=== PATIENT | male | born 1985 | race African-American/Black ===

== ENCOUNTER 2016-12-14 15:05 | Emergency (ER) | payer SELFPAY ==
[2016-12-14 15:59] LABS: #Basophils 0.1 thou/uL (0.0-0.2); #Monocytes 0.5 thou/uL (0.11-0.59); #Neutrophils 5.2 thou/uL (1.40-6.50); %Basophils 0.9 % (0.0-1.0); %Eosinophils 0.4 % (0.0-10.0); %Monocytes 6.6 % (0.0-10.0); Hematocrit 53.2 % (42.0-52.0); Mean Platelet Volume 6.4 fL (7.4-10.4); Red Blood Cell (RBC) Count 5.67 mill/uL (4.70-6.10); White Blood Cell (WBC) Count 7.8 thou/uL (4.8-10.8)
[2016-12-14 16:24] LABS: ALT (SGPT) 18 U/L (8-55); AST (SGOT) 23 U/L (5-34); Alkaline Phosphatase 50 U/L (40-150); Anion Gap 12 mmol/L (10-20); BUN (Urea Nitrogen) 17 mg/dL (8.9-20.6); Bilirubin, Total 0.5 mg/dL (0.2-1.2); Calc. Creatinine Clearance 0 mL/min (70-130); Calcium 9.4 mg/dL (7.8-10.44); Carbon Dioxide 27 mmol/L (22-29); Chloride 104 mmol/L (98-107); Estimated GFR-MDRD 81; Globulin 2.8 g/dL (2.4-3.5); Lipase 12 U/L (8-78); Protein, Total 6.6 g/dL (6.0-8.3)
[2016-12-14] MEDS ORDERED: Ondansetron ODT 4 MG TAB ONE (16:30)
== END 2016-12-14 17:45 | disposition home or self-care (01) ==
LOC: ERS 15:05
DX: R11.2 Nausea with vomiting, unspecified (principal); F17.210 Nicotine dependence, cigarettes, uncomplicated
CPT/HCPCS: 36415; 80053; 83690; 85025; 99284; Q0162

== ENCOUNTER 2017-03-09 14:03 | Emergency (ER) | payer SELFPAY | END 2017-03-09 14:25 | disposition home or self-care (01) | LOC: ERS 14:03 | DX: J02.9 Acute pharyngitis, unspecified (principal); F17.210 Nicotine dependence, cigarettes, uncomplicated | CPT/HCPCS: 99283 ==

== ENCOUNTER 2017-12-30 14:00 | Emergency (ER) | payer SELFPAY | END 2017-12-30 14:47 | disposition home or self-care (01) | LOC: SCSER 14:00 | DX: M62.838 Other muscle spasm (principal); F17.210 Nicotine dependence, cigarettes, uncomplicated | CPT/HCPCS: 99283 ==

== ENCOUNTER 2018-12-03 16:39 | Emergency (ER) | payer SELFPAY ==
[2018-12-03 17:43] LABS: Bacteria/HPF None Seen HPF (None Seen); Bilirubin Negative (Negative); Blood, Urine Negative (Negative); Clarity Clear (Clear); Glucose, Urine (Dipstick) Normal (Negative); Leukocyte 250 Leu/uL (Negative); Nitrite Negative (Negative); Protein, Urine (Dipstick) Negative (Neg-Trace); RBC/HPF 0-3 HPF (0-3); Squamous Epithelial None Seen HPF (0-3); Urobilinogen Normal mg/dL (Less than 2)
[2018-12-03 17:48] LABS: Hemoglobin 15.2 g/dL (14.0-18.0); Mean Corpuscular Hemoglobin 28.3 pg (27.0-31.0); Mean Corpuscular Volume 85.7 fL (78.0-98.0); Platelet Count 219 thou/uL (130-400); RBC Distribution Width 12.3 % (11.5-14.5); Red Blood Cell (RBC) Count 5.37 mill/uL (4.70-6.10); White Blood Cell (WBC) Count 7.5 thou/uL (4.8-10.8)
[2018-12-03 18:01] LABS: Lymphocytes 50 % (21-51); MDiff Complete? YES; Monocytes 9 % (0-10); Neutrophil 39 % (42-75); Platelet Morphology Comment Appears Adequate; RBC Morphology Normal; Reactive Lymphocytes 2 % (0-10)
[2018-12-03 18:09] LABS: ALT (SGPT) 58 U/L (8-55); AST (SGOT) 40 U/L (5-34); Albumin 4.3 g/dL (3.5-5.0); Alkaline Phosphatase 202 U/L (40-110); Anion Gap 10 mmol/L (10-20); BUN (Urea Nitrogen) 21 mg/dL (8.9-20.6); Bilirubin, Total 0.7 mg/dL (0.2-1.2); Calc. Creatinine Clearance 0 mL/min (70-130); Calcium 9.8 mg/dL (7.8-10.44); Carbon Dioxide 28 mmol/L (22-29); Chloride 103 mmol/L (98-107); Estimated GFR-MDRD Greater than 90; Globulin 3.2 g/dL (2.4-3.5); Glucose 92 mg/dL (70-105); Lipase 29 U/L (8-78); Potassium 4.2 mmol/L (3.5-5.1); Protein, Total 7.5 g/dL (6.0-8.3); Sodium 137 mmol/L (136-145)
[2018-12-03 20:07] LABS: Free T4 (Free Thyroxine) 3.32 ng/dL (0.70-1.48); Thyroid Stimulating Hormone Less than 0.0025 uIU/mL (0.35-4.94)
== END 2018-12-03 21:32 | disposition home or self-care (01) ==
LOC: ERS 16:39
DX: E03.9 Hypothyroidism, unspecified (principal); F17.210 Nicotine dependence, cigarettes, uncomplicated
CPT/HCPCS: 36415; 80053; 81003; 81015; 83690; 84439; 84443; 85025; 99284

== ENCOUNTER 2021-12-24 12:51 | Emergency (ER) | payer SELFPAY ==
[2021-12-24 13:27] LABS: #Basophils 0.1 thou/uL (0.0-0.2); #Lymphocytes 2.2 thou/uL (1.20-3.40); #Monocytes 0.7 thou/uL (0.11-0.59); #Neutrophils 4.7 thou/uL (1.40-6.50); %Basophils 0.9 % (0.0-1.0); %Eosinophils 0.4 % (0.0-10.0); %Monocytes 8.6 % (0.0-10.0); Hemoglobin 16.4 g/dL (14.0-18.0); Mean Corpuscular HGB CONC 32.3 g/dL (32.0-36.0); Mean Corpuscular Hemoglobin 31.5 pg (27.0-31.0); Mean Corpuscular Volume 97.2 fl (78.0-98.0); Mean Platelet Volume 7.4 fL (7.4-10.4); Platelet Count 246 thou/uL (130-400); RBC Distribution Width 12.7 % (11.5-14.5); Red Blood Cell (RBC) Count 5.21 mill/uL (4.70-6.10); White Blood Cell (WBC) Count 7.7 thou/uL (4.8-10.8)
[2021-12-24 13:36] LABS: ALT (SGPT) 24 U/L (8-55); AST (SGOT) 21 U/L (5-34); Albumin 4.2 g/dL (3.5-5.0); Alkaline Phosphatase 53 U/L (40-110); Anion Gap 12 mmol/L (10-20); BUN (Urea Nitrogen) 10 mg/dL (8.9-20.6); Bilirubin, Total 0.6 mg/dL (0.2-1.2); Calc. Creatinine Clearance 0 mL/min (70-130); Calcium 9.8 mg/dL (7.8-10.44); Carbon Dioxide 27 mmol/L (22-29); Chloride 104 mmol/L (98-107); Estimated GFR 84; Globulin 3.2 g/dL (2.4-3.5); Glucose 91 mg/dL (70-105); Protein, Total 7.4 g/dL (6.0-8.3); Sodium 139 mmol/L (136-145)
[2021-12-24 14:14] LABS: Bilirubin Negative (Negative); Blood, Urine Negative (Negative); Clarity Clear (Clear); Glucose, Urine (Dipstick) Normal (Negative); Ketone, Urine Negative (Negative); Leukocyte Negative Leu/uL (Negative); Nitrite Negative (Negative); Protein, Urine (Dipstick) Negative (Neg-Trace); Specific Gravity, Urine 1.004 (1.002-1.036); Urobilinogen Normal mg/dL (Less than 2)
[2021-12-24] MEDS ORDERED: Cyclobenzaprine 10 MG TAB ONE (14:41)
[2021-12-24] MEDS ORDERED: Ketorolac Tromethamine 30 MG/ML VIAL ONE (14:41)
== END 2021-12-24 16:53 | disposition home or self-care (01) ==
LOC: ERS 12:51
DX: S39.012A Strain of muscle, fascia and tendon of lower back, initial encounter (principal); R35.0 Frequency of micturition; E05.90 Thyrotoxicosis, unspecified without thyrotoxic crisis or storm; F17.210 Nicotine dependence, cigarettes, uncomplicated; X50.0XXA Overexertion from strenuous movement or load, initial encounter
CPT/HCPCS: 36415; 74176; 80053; 81003; 85025; 96361; 96374; J1885

== ENCOUNTER 2023-12-11 04:38 | Inpatient (IN) | payer SELFPAY ==
[2023-12-11] MEDS ORDERED: Metoprolol Tartrate 5 MG (5 mL) VIAL ONE ×2 (05:10→07:13)
[2023-12-11 05:32] LABS: #Basophils Less than 0.03 10x3/uL (0.0-0.2); %Basophils 0.2 % (0.0-1.0); %Eosinophils 0.5 % (0.0-10.0); %Lymphocytes 36.8 % (21.0-51.0); %Monocytes 12.8 % (0.0-10.0); %Neutrophils 49.4 % (42.0-75.0); Hematocrit 41.5 % (42.0-52.0); Hemoglobin 13.2 g/dL (14.0-18.0); Mean Corpuscular HGB CONC 31.8 g/dL (32.0-36.0); Mean Corpuscular Hemoglobin 27.7 pg (27.0-31.0); Mean Platelet Volume 10.4 fL (7.4-10.4); Platelet Count 196 10x3/uL (130-400); RBC Distribution Width 13.2 % (11.5-14.5); Red Blood Cell (RBC) Count 4.77 mill/uL (4.70-6.10)
[2023-12-11 05:45] LABS: ALT (SGPT) 31 U/L (8-55); AST (SGOT) 34 U/L (5-34); Albumin 3.4 g/dL (3.5-5.0); Alkaline Phosphatase 154 U/L (40-110); BUN (Urea Nitrogen) 13 mg/dL (8.9-20.6); Bilirubin, Total 0.8 mg/dL (0.2-1.2); Calc. Creatinine Clearance 0 mL/min (70-130); Calcium 9.6 mg/dL (7.8-10.44); Carbon Dioxide 22 mmol/L (22-29); Estimated GFR 114; Globulin 3.6 g/dL (2.4-3.5); Glucose 160 mg/dL (70-105)
[2023-12-11 06:03] LABS: Chloride 109 mmol/L (98-107); Potassium 3.7 mmol/L (3.5-5.1); Sodium 139 mmol/L (136-145)
[2023-12-11 06:05] LABS: Anion Gap 14 mmol/L (10-20)
[2023-12-11 06:27] LABS: Free T4 (Free Thyroxine) 3.06 ng/dL (0.70-1.48); Thyroid Stimulating Hormone Less than 0.0083 uIU/mL (0.35-4.94)
[2023-12-11] MEDS ORDERED: Hydrocortisone Sod Succ/PF 100 mg/2 ml Vial ONE (07:13)
[2023-12-11] MEDS ORDERED: Aspirin Chewable 81 MG TAB ONE (07:33)
[2023-12-11] MEDS ORDERED: Ondansetron PF 4 MG/2 ML Vial IVP PRN (08:28)
[2023-12-11] MEDS ORDERED: Acetaminophen 325 MG TAB PO PRN (08:28)
[2023-12-11] MEDS ORDERED: Senokot S 8.6-50 MG TAB PO PRN (08:28)
[2023-12-11] MEDS ORDERED: Guaifenesin DM 100-10/5 ML UDCUP PO PRN (08:28)
[2023-12-11 08:31] LABS: Troponin I Less than 0.010 ng/mL (< 0.028)
[2023-12-11] MEDS: Propylthiouracil 50 MG TAB PO SCH (08:50)
[2023-12-11] MEDS: Propranolol 40 MG TAB PO SCH (08:50)
[2023-12-11] MEDS ORDERED: Metoprolol Tartrate 5 MG (5 mL) VIAL IVP PRN (08:56)
[2023-12-11] MEDS: Atenolol 50 MG TAB PO SCH (09:24)
[2023-12-11 09:38] LABS: Iron 46 ug/dL (65-175); Iron Binding Capacity, Total 284 mcg/dL (261-462)
[2023-12-11] MEDS ORDERED: Enoxaparin 40 MG (0.4 mL) SYRINGE ONE (09:41)
[2023-12-11] MEDS: Sodium Chloride 0.9% 1,000 ML IV SCH (09:59)
[2023-12-11] MEDS: Methimazole 10 MG TAB PO SCH ×2 (09:59→19:12)
[2023-12-11] MEDS: Enoxaparin 40 MG (0.4 mL) SYRINGE SC SCH (09:59)
[2023-12-11] MEDS: Hydrocortisone Sod Succ/PF 100 mg/2 ml Vial IVP SCH (20:59)
[2023-12-11] MEDS: Nicotine 21 MG PATCH TD SCH (20:59)
[2023-12-12 04:29] LABS: #Basophils Less than 0.03 10x3/uL (0.0-0.2); #Eosinophils Less than 0.03 10x3/uL (0.0-0.7); %Basophils 0.1 % (0.0-1.0); %Lymphocytes 20.6 % (21.0-51.0); %Monocytes 6.9 % (0.0-10.0); %Neutrophils 72.1 % (42.0-75.0); Hematocrit 38.9 % (42.0-52.0); Hemoglobin 12.9 g/dL (14.0-18.0); Mean Corpuscular HGB CONC 33.2 g/dL (32.0-36.0); Mean Corpuscular Hemoglobin 27.6 pg (27.0-31.0); Mean Corpuscular Volume 83.3 fL (78.0-98.0); Mean Platelet Volume 10.5 fL (7.4-10.4); Platelet Count 187 10x3/uL (130-400); RBC Distribution Width 13.1 % (11.5-14.5); Red Blood Cell (RBC) Count 4.67 mill/uL (4.70-6.10)
[2023-12-12 05:45] LABS: ALT (SGPT) 32 U/L (8-55); AST (SGOT) 37 U/L (5-34); Albumin 2.9 g/dL (3.5-5.0); Alkaline Phosphatase 144 U/L (40-110); Anion Gap 11 mmol/L (10-20); BUN (Urea Nitrogen) 13 mg/dL (8.9-20.6); Bilirubin, Total 0.7 mg/dL (0.2-1.2); Calc. Creatinine Clearance 119 mL/min (70-130); Calcium 9.3 mg/dL (7.8-10.44); Carbon Dioxide 21 mmol/L (22-29); Chloride 109 mmol/L (98-107); Estimated GFR 120; Globulin 3.3 g/dL (2.4-3.5); Glucose 128 mg/dL (70-105); Magnesium 1.8 mg/dL (1.6-2.6); Potassium 4.3 mmol/L (3.5-5.1); Protein, Total 6.2 g/dL (6.0-8.3); Sodium 137 mmol/L (136-145)
[2023-12-12 06:31] LABS: Free T4 (Free Thyroxine) 2.83 ng/dL (0.70-1.48)
[2023-12-12 11:48] VITALS: BMI 18.6
[2023-12-12] MEDS: Nicotine 21 MG PATCH TD SCH (20:09)
[2023-12-13] MEDS: Propranolol 60 MG TAB PO SCH (12:28)
[2023-12-14 03:28] LABS: #Basophils Less than 0.03 10x3/uL (0.0-0.2); #Eosinophils Less than 0.03 10x3/uL (0.0-0.7); %Basophils 0.1 % (0.0-1.0); %Monocytes 5.2 % (0.0-10.0); %Neutrophils 82.4 % (42.0-75.0); Hematocrit 42.5 % (42.0-52.0); Hemoglobin 13.7 g/dL (14.0-18.0); Mean Corpuscular HGB CONC 32.2 g/dL (32.0-36.0); Mean Corpuscular Hemoglobin 27.3 pg (27.0-31.0); Mean Corpuscular Volume 84.7 fL (78.0-98.0); Mean Platelet Volume 10.4 fL (7.4-10.4); Platelet Count 231 10x3/uL (130-400); Red Blood Cell (RBC) Count 5.02 mill/uL (4.70-6.10)
[2023-12-14 04:30] LABS: Anion Gap 12 mmol/L (10-20); BUN (Urea Nitrogen) 17 mg/dL (8.9-20.6); Calc. Creatinine Clearance 124 mL/min (70-130); Carbon Dioxide 22 mmol/L (22-29); Chloride 106 mmol/L (98-107); Estimated GFR 121; Glucose 111 mg/dL (70-105); Potassium 3.8 mmol/L (3.5-5.1); Sodium 136 mmol/L (136-145)
[2023-12-14 06:24] VITALS: BMI 19.2
[2023-12-14] MEDS: Hydrocortisone Sod Succ/PF 100 mg/2 ml Vial IVP SCH (09:16)
[2023-12-15 04:46] LABS: Anion Gap 11 mmol/L (10-20); BUN (Urea Nitrogen) 18 mg/dL (8.9-20.6); Calc. Creatinine Clearance 120 mL/min (70-130); Calcium 9.4 mg/dL (7.8-10.44); Carbon Dioxide 27 mmol/L (22-29); Chloride 106 mmol/L (98-107); Estimated GFR 119; Glucose 110 mg/dL (70-105); Potassium 3.7 mmol/L (3.5-5.1); Sodium 140 mmol/L (136-145)
[2023-12-16 04:59] LABS: Anion Gap 11 mmol/L (10-20); BUN (Urea Nitrogen) 16 mg/dL (8.9-20.6); Calc. Creatinine Clearance 131 mL/min (70-130); Carbon Dioxide 28 mmol/L (22-29); Chloride 104 mmol/L (98-107); Estimated GFR 118; Glucose 98 mg/dL (70-105); Potassium 3.7 mmol/L (3.5-5.1); Sodium 139 mmol/L (136-145)
[2023-12-16 12:08] VITALS: BP 140/102; TEMP 98
== END 2023-12-16 12:28 | disposition home or self-care (01) | DRG 643 ==
LOC: ERS 04:38 → ERHOLD 08:34 → IMCU/EMU 11:58 → 2NO 12-14 15:00
PROVIDERS: ADMIT Hospitalist; ATTEND Hospitalist
DX: E05.91 Thyrotoxicosis, unspecified with thyrotoxic crisis or storm (principal); I50.21 Acute systolic (congestive) heart failure; I42.9 Cardiomyopathy, unspecified; I48.91 Unspecified atrial fibrillation; F17.210 Nicotine dependence, cigarettes, uncomplicated; Z79.899 Other long term (current) drug therapy; I08.1 Rheumatic disorders of both mitral and tricuspid valves; Z91.148 Patient's other noncompliance with medication regimen for other reason
CPT/HCPCS: 36415; 71045; 80048; 80053; 82728; 83540; 83550; 83735; 83880; 84439; 84443; 84481; 84484; 85025; 86376; 86800; 87081; 87430; 93005; 93306; 93798; 96361; 96374; 96375; 96376; J1650; J1720; J7030

== ENCOUNTER 2024-01-01 19:18 | Inpatient (IN) | payer OTHER ==
[2024-01-01] MEDS ORDERED: dilTIAZem 25 MG/5 ML VIAL ONE (20:00)
[2024-01-01 20:05] LABS: #Basophils Less than 0.03 10x3/uL (0.0-0.2); #Eosinophils Less than 0.03 10x3/uL (0.0-0.7); %Basophils 0.2 % (0.0-1.0); %Eosinophils 0.1 % (0.0-10.0); %Lymphocytes 39.7 % (21.0-51.0); %Monocytes 10.5 % (0.0-10.0); %Neutrophils 49.3 % (42.0-75.0); Hematocrit 40.1 % (42.0-52.0); Mean Corpuscular HGB CONC 32.4 g/dL (32.0-36.0); Mean Corpuscular Volume 83.4 fL (78.0-98.0); Mean Platelet Volume 10.6 fL (7.4-10.4); Platelet Count 245 10x3/uL (130-400); RBC Distribution Width 14.4 % (11.5-14.5); Red Blood Cell (RBC) Count 4.81 mill/uL (4.70-6.10)
[2024-01-01 20:23] LABS: Anion Gap 14 mmol/L (10-20); BUN (Urea Nitrogen) 16 mg/dL (8.9-20.6); Calc. Creatinine Clearance 0 mL/min (70-130); Carbon Dioxide 20 mmol/L (22-29); Chloride 107 mmol/L (98-107); Sodium 137 mmol/L (136-145)
[2024-01-01 20:24] LABS: ALT (SGPT) 27 U/L (8-55); AST (SGOT) 34 U/L (5-34); Albumin 3.4 g/dL (3.5-5.0); Alkaline Phosphatase 181 U/L (40-110); Bilirubin, Total 2.4 mg/dL (0.2-1.2); Calcium 9.1 mg/dL (7.8-10.44); Estimated GFR 93; Globulin 3.9 g/dL (2.4-3.5); Glucose 87 mg/dL (70-105); Protein, Total 7.3 g/dL (6.0-8.3)
[2024-01-01 20:27] LABS: Troponin I 0.039 ng/mL (< 0.028)
[2024-01-01] MEDS ORDERED: Furosemide 40 MG (4 mL) VIAL ONE (20:39)
[2024-01-01] MEDS ORDERED: dilTIAZem 125 MG/25 ML SDV ONE ×2 (20:40→20:41)
[2024-01-01 20:53] LABS: Free T4 (Free Thyroxine) 2.05 ng/dL (0.70-1.48); Thyroid Stimulating Hormone Less than 0.0083 uIU/mL (0.35-4.94)
[2024-01-01] MEDS ORDERED: Metoprolol Tartrate 5 MG (5 mL) VIAL ONE (22:04)
[2024-01-01] MEDS ORDERED: Ondansetron PF 4 MG/2 ML Vial ONE (22:21)
[2024-01-01] MEDS ORDERED: Hydrocortisone Sod Succ/PF 100 mg/2 ml Vial ONE (23:04)
[2024-01-01] MEDS ORDERED: Acetaminophen 650 MG Suppository PR PRN (23:42)
[2024-01-01 23:47] LABS: Troponin I 0.031 ng/mL (< 0.028)
[2024-01-02 01:09] VITALS: BMI 22.8
[2024-01-02] MEDS: Propylthiouracil 50 MG TAB PO SCH (01:20)
[2024-01-02 02:21] LABS: Amphetamine Not Detected (NotDetected); Barbiturates Screen Not Detected (NotDetected); Benzodiazepine Screen Not Detected (NotDetected); Cocaine Metabolite Screen Not Detected (NotDetected); Methadone Not Detected (NotDetected); Methamphetamine Not Detected (NotDetected); Opiate Screen Not Detected (NotDetected); Oxycodone Screen Not Detected (NotDetected); Phencyclidine (PCP) Not Detected (NotDetected); THC/Cannabinoid Screen Detected (NotDetected); Tricyclic Screen Not Detected (NotDetected)
[2024-01-02 02:22] LABS: #Basophils Less than 0.03 10x3/uL (0.0-0.2); #Eosinophils Less than 0.03 10x3/uL (0.0-0.7); %Basophils 0.2 % (0.0-1.0); %Lymphocytes 19.5 % (21.0-51.0); %Monocytes 3.9 % (0.0-10.0); %Neutrophils 76.1 % (42.0-75.0); Hematocrit 39.7 % (42.0-52.0); Hemoglobin 12.2 g/dL (14.0-18.0); Mean Corpuscular HGB CONC 30.7 g/dL (32.0-36.0); Mean Corpuscular Hemoglobin 27.1 pg (27.0-31.0); Platelet Count 213 10x3/uL (130-400); RBC Distribution Width 14.5 % (11.5-14.5); Red Blood Cell (RBC) Count 4.51 mill/uL (4.70-6.10)
[2024-01-02 02:52] LABS: Troponin I 0.049 ng/mL (< 0.028)
[2024-01-02 03:35] LABS: ALT (SGPT) 27 U/L (8-55); AST (SGOT) 34 U/L (5-34); Albumin 3.2 g/dL (3.5-5.0); Alkaline Phosphatase 172 U/L (40-110); Anion Gap 22 mmol/L (10-20); BUN (Urea Nitrogen) 19 mg/dL (8.9-20.6); Bilirubin, Total 2.8 mg/dL (0.2-1.2); Calc. Creatinine Clearance 75 mL/min (70-130); Calcium 8.7 mg/dL (7.8-10.44); Carbon Dioxide 13 mmol/L (22-29); Chloride 107 mmol/L (98-107); Estimated GFR 65; Globulin 3.7 g/dL (2.4-3.5); Glucose 142 mg/dL (70-105); Magnesium 1.9 mg/dL (1.6-2.6); Potassium 4.9 mmol/L (3.5-5.1); Protein, Total 6.9 g/dL (6.0-8.3); Sodium 137 mmol/L (136-145)
[2024-01-02] MEDS: Metoprolol Tartrate 5 MG (5 mL) VIAL IVP SCH (04:34)
[2024-01-02] MEDS: Furosemide 40 MG (4 mL) VIAL SLOW IVP SCH (05:00)
[2024-01-02] MEDS: Acetaminophen 325 MG TAB PO SCH (07:49)
[2024-01-02] MEDS ORDERED: Methimazole 10 MG TAB PO SCH (09:00)
[2024-01-02] MEDS ORDERED: Cholestyramine/Aspartame 4 gm Packet PO SCH (10:00)
[2024-01-02] MEDS ORDERED: Iopamidol-370 76% 500 ML MDV (1 ML CHARGE) ONE (10:32)
[2024-01-02] MEDS: Enoxaparin 40 MG (0.4 mL) SYRINGE SC SCH (10:43)
[2024-01-02] MEDS: Propranolol 40 MG TAB PO SCH (10:43)
[2024-01-02] MEDS: Methimazole 10 MG TAB PO SCH (10:43)
[2024-01-02] MEDS: Hydrocortisone Sod Succ/PF 100 mg/2 ml Vial IVP SCH (10:43)
[2024-01-02] MEDS: Digoxin 0.5 MG/2 ML AMP SLOW IVP SCH (10:43)
[2024-01-02] MEDS: Cholestyramine/Aspartame 4 gm Packet PO SCH (12:35)
[2024-01-02] MEDS: Ondansetron PF 4 MG/2 ML Vial IVP PRN (12:41)
[2024-01-02] MEDS: Morphine 4 MG/ML VIAL SLOW IVP SCH (13:41)
[2024-01-02] MEDS: Pantoprazole 40 MG VIAL IVP SCH ×2 (13:42→20:18)
[2024-01-02] MEDS: NOREPINEPHRINE 8 MG/250 ML-D5W 250 ML ONE (14:15)
[2024-01-02] MEDS: Fentanyl CADD 100 ML IV SCH (14:16)
[2024-01-02 14:26] LABS: Analyzer IN Cardio ER; Base Excess -29.4 mEq/L (-2.0 to +3.0); Chloride (VBG) 98 mmol/L (98-106); Hematocrit-VBG 35 % (42.0-52.0); Hemoglobin (Hb) 11.8 g/dL (13.2-17.3); Sodium 134 mmol/L (133-146); pH (venous) 6.616 (7.32-7.43)
[2024-01-02 14:27] LABS: Actual Bicarbonate (HCO3v) 8.8 mEq/L (22-28); Potassium (VBG) 6.08 mmol/L (3.70-5.30)
[2024-01-02] MEDS ORDERED: Heparin 25,000 units/D5W 500 ML ONE (14:28)
[2024-01-02] MEDS ORDERED: Heparin 10,000 UNITS/ 10 ML VIAL SLOW IVP SCH ×3 (14:30→19:30)
[2024-01-02] MEDS ORDERED: Heparin 25,000 units/D5W 500 ML IV SCH (14:30)
[2024-01-02] MEDS: ALTEPLASE 50 MG/50 ML VIAL IVP SCH (15:32)
[2024-01-02 15:34] LABS: #Basophils Less than 0.03 10x3/uL (0.0-0.2); #Eosinophils Less than 0.03 10x3/uL (0.0-0.7); %Basophils 0.2 % (0.0-1.0); %Monocytes 5.8 % (0.0-10.0); %Neutrophils 54.3 % (42.0-75.0); Hematocrit 40.5 % (42.0-52.0); Hemoglobin 12.2 g/dL (14.0-18.0); Mean Corpuscular HGB CONC 30.1 g/dL (32.0-36.0); Mean Corpuscular Hemoglobin 27.5 pg (27.0-31.0); Mean Corpuscular Volume 91.2 fL (78.0-98.0); Mean Platelet Volume 11.6 fL (7.4-10.4); Platelet Count 189 10x3/uL (130-400); RBC Distribution Width 14.6 % (11.5-14.5); Red Blood Cell (RBC) Count 4.44 mill/uL (4.70-6.10)
[2024-01-02] MEDS: PREFILLED IVP SCH (15:52)
[2024-01-02] MEDS: ALTEPLASE IVP SCH (15:52)
[2024-01-02] MEDS ORDERED: Sodium Bicarb 50 MEQ/50 ML Abboject 8.4% SYRINGE ONE (16:00)
[2024-01-02] MEDS: Sodium Bicarb 50 MEQ/50 ML Abboject 8.4% SYRINGE ONE (16:00)
[2024-01-02 16:06] LABS: PTT Greater than 250.0 sec (22.9-36.1); Prothrombin Time Greater than 150.0 sec (12.0-14.7)
[2024-01-02 16:35] LABS: AST (SGOT) 81 U/L (5-34)
[2024-01-02 16:40] LABS: ALT (SGPT) 43 U/L (8-55); Albumin 2.5 g/dL (3.5-5.0); Alkaline Phosphatase 148 U/L (40-110); Anion Gap 26 mmol/L (10-20); BUN (Urea Nitrogen) 27 mg/dL (8.9-20.6); Bilirubin, Total 1.9 mg/dL (0.2-1.2); Calc. Creatinine Clearance 49 mL/min (70-130); Calcium 8.9 mg/dL (7.8-10.44); Carbon Dioxide 16 mmol/L (22-29); Chloride 103 mmol/L (98-107); Estimated GFR 40; Glucose 149 mg/dL (70-105); Magnesium 2.9 mg/dL (1.6-2.6); Potassium 8.7 mmol/L (3.5-5.1); Protein, Total 5.5 g/dL (6.0-8.3); Sodium 136 mmol/L (136-145)
[2024-01-02] MEDS ORDERED: Insulin Regular, Human 100 UNIT/ML 10 ML VIAL IVP SCH (17:00)
[2024-01-02] MEDS: CALCIUM GLUC 1 GM/NS 50 ML 1 GM in Premix 1 BAG IVPB SCH (17:03)
[2024-01-02] MEDS: Insulin Regular, Human 100 UNIT/ML 10 ML VIAL IVP SCH (17:04)
[2024-01-02] MEDS: Dextrose 50% Abboject 50 ML SYRINGE SLOW IVP SCH (17:05)
[2024-01-02] MEDS: Vasopressin In 0.9 % NaCl 40 UNIT in Premix 1 BAG IV SCH (17:23)
[2024-01-02] MEDS: EPINEPHrine 4 MG in Dextrose 5% in Water 250 ML IV SCH (18:17)
[2024-01-02] MEDS: Sodium Bicarbonate 150 MEQ in Dextrose 5% in Water 1,000 ML IV SCH (18:28)
[2024-01-02 18:29] LABS: #Basophils Less than 0.03 10x3/uL (0.0-0.2); #Eosinophils Less than 0.03 10x3/uL (0.0-0.7); %Basophils 0.1 % (0.0-1.0); %Eosinophils 0.1 % (0.0-10.0); %Monocytes 3.8 % (0.0-10.0); %Neutrophils 78.8 % (42.0-75.0); Hematocrit 35.1 % (42.0-52.0); Hemoglobin 11.2 g/dL (14.0-18.0); Mean Corpuscular HGB CONC 31.9 g/dL (32.0-36.0); Mean Corpuscular Volume 84.6 fL (78.0-98.0); Mean Platelet Volume 10.6 fL (7.4-10.4); Platelet Count 184 10x3/uL (130-400); RBC Distribution Width 14.5 % (11.5-14.5); Red Blood Cell (RBC) Count 4.15 mill/uL (4.70-6.10)
[2024-01-02 18:41] LABS: ALT (SGPT) 70 U/L (8-55); AST (SGOT) 137 U/L (5-34); Albumin 2.5 g/dL (3.5-5.0); Alkaline Phosphatase 152 U/L (40-110); Anion Gap 19 mmol/L (10-20); BUN (Urea Nitrogen) 27 mg/dL (8.9-20.6); Bilirubin, Direct 1.2 mg/dL (0.1-0.3); Calc. Creatinine Clearance 46 mL/min (70-130); Calcium 7.8 mg/dL (7.8-10.44); Carbon Dioxide 22 mmol/L (22-29); Chloride 102 mmol/L (98-107); Estimated GFR 37; Glucose 133 mg/dL (70-105); Magnesium 2.7 mg/dL (1.6-2.6); Potassium 4.7 mmol/L (3.5-5.1); Protein, Total 5.2 g/dL (6.0-8.3); Sodium 138 mmol/L (136-145)
[2024-01-02] MEDS ORDERED: Ventilator Sedation Protocol FS SCH (18:49)
[2024-01-02] MEDS ORDERED: Dextrose 5% in Water 1,000 ML IV PRN (18:51)
[2024-01-02] MEDS ORDERED: Glucagon 1 MG/ML KIT IM PRN (18:51)
[2024-01-02] MEDS ORDERED: Propofol BOLUS 1,000 MG/100 ML VIAL IV PRN (19:00)
[2024-01-02] MEDS ORDERED: DISCONTINUE PREVIOUS NARCOTIC PAIN MEDICATIONS AND BENZODIAZEPINES FS SCH (19:00)
[2024-01-02] MEDS ORDERED: Fentanyl BOLUS 250 ML IVPB PRN (19:00)
[2024-01-02] MEDS ORDERED: Morphine 2 MG/ML VIAL SLOW IVP PRN (19:00)
[2024-01-02] MEDS ORDERED: Vancomycin 1 GM in Premix 1 BAG IVPB SCH (19:30)
[2024-01-02 19:52] LABS: Actual Bicarbonate (HCO3v) 18.3 mEq/L (22-28); Base Excess -12.1 mEq/L (-2.0 to +3.0); Calcium, Ionized (venous) 1.07 mmol/L (1.16-1.32); Chloride (VBG) 99 mmol/L (98-106); Hematocrit-VBG 38 % (42.0-52.0); Hemoglobin (Hb) 12.9 g/dL (13.2-17.3); Potassium (VBG) 4.45 mmol/L (3.70-5.30); Sodium 143 mmol/L (133-146)
[2024-01-02 19:55] LABS: Hematocrit 38.3 % (42.0-52.0); Hemoglobin 11.9 g/dL (14.0-18.0); Platelet Count 201 10x3/uL (130-400)
[2024-01-02] MEDS: Propofol 1,000 MG/100 ML VIAL IV PRN (20:00)
[2024-01-02] MEDS ORDERED: NOREPINEPHRINE 8 MG/250 ML-D5W 250 ML IVPB SCH (20:00)
[2024-01-02] MEDS: Lorazepam 2 MG/ML VIAL SLOW IVP PRN (20:02)
[2024-01-02] MEDS: Vancomycin (BATCH) 1.75 GM in Premix 1 BAG IVPB SCH (20:07)
[2024-01-02] MEDS: Cefepime 1 GM in Sodium Chloride 0.9% 100 ML IVPB SCH (20:15)
[2024-01-02 20:20] LABS: Lactic Acid 14.65 mmol/L (0.5-2.2)
[2024-01-02 20:28] LABS: Actual Bicarbonate (HCO3a) 18.9 mEq/L (22-28); Base Excess (BEa) -4.5 mEq/L (-2.0 to +3.0); CO2 Tension 29.9 mmHg (35.0-45.0); Calcium, Ionized (arterial) 1.02 mmol/L (1.12-1.30); Carboxyhemoglobin (COHb) 0.6 gm% (0.0-3.0); Hematocrit-ABG 36 % (42.0-52.0); Hemoglobin (Hb) 12.2 g/dL (14.0-18.0); Potassium - ABG Lab 4.43 mmol/L (3.70-5.30); pH, Arterial 7.418 (7.35-7.45)
[2024-01-02 20:29] LABS: ALV-art Gradient 453.625 mmHg (0-20); Puncture Site Left Radial artery
[2024-01-02 20:46] LABS: Potassium 4.5 mmol/L (3.5-5.1)
[2024-01-02] MEDS: Heparin 25,000 units/D5W 500 ML IVPB SCH (22:13)
[2024-01-02] MEDS: Norepinephrine 16 MG, Admixture Fee 1 EACH in Dextrose 5% in Water 234 ML IVPB PRN (22:21)
[2024-01-02] MEDS: WATER IVP SCH (22:25)
[2024-01-02] MEDS: DEXTROSE 5% IVP SCH (22:25)
[2024-01-02] MEDS: EPINEPHRINE IVP SCH (22:25)
[2024-01-02 22:28] LABS: Lactic Acid 7.62 mmol/L (0.5-2.2)
[2024-01-03 00:12] LABS: Actual Bicarbonate (HCO3v) 23.5 mEq/L (22-28); Base Excess -1.5 mEq/L (-2.0 to +3.0); Calcium, Ionized (venous) 0.88 mmol/L (1.16-1.32); Chloride (VBG) 94 mmol/L (98-106); Hematocrit-VBG 39 % (42.0-52.0); Hemoglobin (Hb) 13.1 g/dL (13.2-17.3); Sodium 134 mmol/L (133-146); pH (venous) 7.377 (7.32-7.43)
[2024-01-03 00:35] LABS: Lactic Acid 8.25 mmol/L (0.5-2.2)
[2024-01-03] MEDS: Sodium Bicarbonate 150 MEQ in Dextrose 5% in Water 1,000 ML IV SCH ×2 (01:21→10:48)
[2024-01-03 02:05] LABS: Hematocrit 37.2 % (42.0-52.0); Hemoglobin 12.1 g/dL (14.0-18.0)
[2024-01-03 02:26] LABS: INR-International Normal Ratio 4.6
[2024-01-03 02:31] LABS: PTT 199.1 sec (22.9-36.1)
[2024-01-03] MEDS: Dextrose 50% Abboject 50 ML SYRINGE SLOW IVP PRN (03:42)
[2024-01-03] MEDS: Dextrose 50% Abboject 50 ML SYRINGE ONE (03:42)
[2024-01-03] MEDS: Insulin Regular, Human 100 UNIT/ML 10 ML VIAL IVP SCH (03:42)
[2024-01-03 04:35] LABS: #Basophils Less than 0.03 10x3/uL (0.0-0.2); #Eosinophils Less than 0.03 10x3/uL (0.0-0.7); %Basophils 0.1 % (0.0-1.0); %Monocytes 4.1 % (0.0-10.0); Hematocrit 35.2 % (42.0-52.0); Hemoglobin 11.7 g/dL (14.0-18.0); Mean Corpuscular HGB CONC 33.2 g/dL (32.0-36.0); Mean Corpuscular Hemoglobin 27.4 pg (27.0-31.0); Mean Corpuscular Volume 82.4 fL (78.0-98.0); Mean Platelet Volume 11.1 fL (7.4-10.4); Platelet Count 220 10x3/uL (130-400); RBC Distribution Width 14.3 % (11.5-14.5); Red Blood Cell (RBC) Count 4.27 mill/uL (4.70-6.10)
[2024-01-03 05:02] LABS: Lactic Acid 8.59 mmol/L (0.5-2.2)
[2024-01-03 05:21] LABS: Chloride 95 mmol/L (98-107); Potassium 4.5 mmol/L (3.5-5.1); Sodium 136 mmol/L (136-145)
[2024-01-03 06:39] LABS: Anion Gap 24 mmol/L (10-20); BUN (Urea Nitrogen) 36 mg/dL (8.9-20.6); Calc. Creatinine Clearance 35 mL/min (70-130); Calcium 6.9 mg/dL (7.8-10.44); Carbon Dioxide 22 mmol/L (22-29); Estimated GFR 25; Glucose 173 mg/dL (70-105)
[2024-01-03] MEDS: DOBUTamine 500 mg/250 ml 250 ML IVPB SCH (06:46)
[2024-01-03] MEDS: Sodium Chloride 0.9% 1,000 ML IV SCH (06:46)
[2024-01-03] MEDS: Albumin 25% 25 GM (100 mL) BOT IVPB SCH (06:47)
[2024-01-03] MEDS: Albumin 25% 100 ML ONE (07:04)
[2024-01-03] MEDS: DOBUTamine 500 mg/250 ml 250 ML ONE (07:05)
[2024-01-03] MEDS ORDERED: Enoxaparin 40 MG (0.4 mL) SYRINGE SC SCH (09:00)
[2024-01-03] MEDS ORDERED: Vancomycin 1 GM in Premix 1 BAG IVPB SCH (09:00)
[2024-01-03] MEDS: Cefepime 2 GM in Sodium Chloride 0.9% 100 ML IVPB SCH (09:20)
[2024-01-03] MEDS: Hydrocortisone Sod Succ/PF 100 mg/2 ml Vial IVP SCH (09:34)
[2024-01-03] MEDS: CALCIUM GLUC 1 GM/NS 50 ML 1 GM in Premix 1 BAG IVPB SCH ×2 (10:50→17:55)
[2024-01-03] MEDS ORDERED: Vancomycin Dose by Levels Sliding Scale (Wt 71-99) FS SCH (13:15)
[2024-01-03] MEDS: Fentanyl CADD 100 ML IV SCH (13:40)
[2024-01-03 17:12] LABS: #Basophils Less than 0.03 10x3/uL (0.0-0.2); #Eosinophils Less than 0.03 10x3/uL (0.0-0.7); %Basophils 0.1 % (0.0-1.0); %Lymphocytes 8.7 % (21.0-51.0); %Monocytes 7.1 % (0.0-10.0); %Neutrophils 83.7 % (42.0-75.0); Hematocrit 30.2 % (42.0-52.0); Hemoglobin 10.1 g/dL (14.0-18.0); Mean Corpuscular HGB CONC 33.4 g/dL (32.0-36.0); Mean Corpuscular Hemoglobin 27.3 pg (27.0-31.0); Mean Corpuscular Volume 81.6 fL (78.0-98.0); Mean Platelet Volume 11.3 fL (7.4-10.4); Platelet Count 158 10x3/uL (130-400); RBC Distribution Width 13.9 % (11.5-14.5)
[2024-01-03 17:22] LABS: Lactic Acid 3.69 mmol/L (0.5-2.2)
[2024-01-03 17:32] LABS: ALT (SGPT) 938 U/L (8-55); AST (SGOT) 2386 U/L (5-34); Albumin 2.8 g/dL (3.5-5.0); Alkaline Phosphatase 117 U/L (40-110); Anion Gap 21 mmol/L (10-20); BUN (Urea Nitrogen) 46 mg/dL (8.9-20.6); Bilirubin, Total 2.6 mg/dL (0.2-1.2); Calc. Creatinine Clearance 28 mL/min (70-130); Calcium 6.1 mg/dL (7.8-10.44); Carbon Dioxide 29 mmol/L (22-29); Chloride 91 mmol/L (98-107); Estimated GFR 18; Globulin 2.3 g/dL (2.4-3.5); Glucose 94 mg/dL (70-105); Protein, Total 5.1 g/dL (6.0-8.3); Sodium 136 mmol/L (136-145)
[2024-01-03] MEDS: Cefepime 1 GM in Sodium Chloride 0.9% 100 ML IVPB SCH (20:32)
[2024-01-03] MEDS ORDERED: Vancomycin HCl 750 MG in Sodium Chloride 0.9% 250 ML 250 ML IVPB SCH (21:00)
[2024-01-03 21:13] LABS: Vancomycin, Trough 26.8 ug/mL
[2024-01-03 21:44] LABS: Anion Gap 19 mmol/L (10-20); BUN (Urea Nitrogen) 49 mg/dL (8.9-20.6); Calc. Creatinine Clearance 28 mL/min (70-130); Calcium 6.1 mg/dL (7.8-10.44); Carbon Dioxide 33 mmol/L (22-29); Chloride 88 mmol/L (98-107); Estimated GFR 19; Glucose 121 mg/dL (70-105); Potassium 3.8 mmol/L (3.5-5.1); Sodium 136 mmol/L (136-145)
[2024-01-03] MEDS: Calcium Chloride 13.6 MEQ in Sodium Chloride 0.9% 100 ML IVPB SCH (22:20)
[2024-01-03] MEDS: Lactated Ringer's 1,000 ML IV SCH (22:20)
[2024-01-04 03:57] LABS: #Basophils Less than 0.03 10x3/uL (0.0-0.2); #Eosinophils Less than 0.03 10x3/uL (0.0-0.7); %Basophils 0.1 % (0.0-1.0); %Lymphocytes 11.1 % (21.0-51.0); %Monocytes 5.9 % (0.0-10.0); %Neutrophils 82.4 % (42.0-75.0); Hematocrit 30.4 % (42.0-52.0); Hemoglobin 10.2 g/dL (14.0-18.0); Mean Corpuscular HGB CONC 33.6 g/dL (32.0-36.0); Mean Corpuscular Hemoglobin 27.1 pg (27.0-31.0); Mean Corpuscular Volume 80.9 fL (78.0-98.0); Mean Platelet Volume 11.5 fL (7.4-10.4); Platelet Count 175 10x3/uL (130-400); RBC Distribution Width 13.9 % (11.5-14.5); Red Blood Cell (RBC) Count 3.76 mill/uL (4.70-6.10)
[2024-01-04 04:12] LABS: Lactic Acid 2.67 mmol/L (0.5-2.2)
[2024-01-04 04:15] LABS: Phosphorus 6.9 mg/dL (2.3-4.7)
[2024-01-04 04:16] LABS: ALT (SGPT) 1074 U/L (8-55); AST (SGOT) 2221 U/L (5-34); Albumin 3.2 g/dL (3.5-5.0); Alkaline Phosphatase 126 U/L (40-110); Bilirubin, Direct 1.8 mg/dL (0.1-0.3); Bilirubin, Total 3.6 mg/dL (0.2-1.2); Protein, Total 5.3 g/dL (6.0-8.3)
[2024-01-04 04:19] LABS: ALT (SGPT) 1076 U/L (8-55); AST (SGOT) 2213 U/L (5-34); Albumin 3.2 g/dL (3.5-5.0); Alkaline Phosphatase 128 U/L (40-110); Anion Gap 22 mmol/L (10-20); BUN (Urea Nitrogen) 54 mg/dL (8.9-20.6); Bilirubin, Total 3.6 mg/dL (0.2-1.2); Calc. Creatinine Clearance 26 mL/min (70-130); Calcium 6.5 mg/dL (7.8-10.44); Carbon Dioxide 31 mmol/L (22-29); Chloride 88 mmol/L (98-107); Estimated GFR 17; Globulin 2.2 g/dL (2.4-3.5); Glucose 104 mg/dL (70-105); Potassium 4.1 mmol/L (3.5-5.1); Protein, Total 5.4 g/dL (6.0-8.3); Sodium 137 mmol/L (136-145)
[2024-01-04] MEDS: Amiodarone 450 MG in Dextrose 5% in Water 250 ML IVPB SCH (05:48)
[2024-01-04] MEDS: Calcium Chloride 13.6 MEQ in Sodium Chloride 0.9% 100 ML IVPB SCH (05:49)
[2024-01-04 10:38] LABS: Anion Gap 21 mmol/L (10-20); BUN (Urea Nitrogen) 59 mg/dL (8.9-20.6); Calc. Creatinine Clearance 24 mL/min (70-130); Calcium 6.9 mg/dL (7.8-10.44); Carbon Dioxide 28 mmol/L (22-29); Chloride 88 mmol/L (98-107); Estimated GFR 15; Glucose 111 mg/dL (70-105); Potassium 4.1 mmol/L (3.5-5.1); Sodium 133 mmol/L (136-145)
[2024-01-04] MEDS: GenTeal Tears Severe Dry Eye GEL 10 GM EA EYE SCH (11:22)
[2024-01-04] MEDS: Magnesium 2 GM/50 ML(in water) 2 GM in Premix 1 BAG IVPB SCH (11:24)
[2024-01-04 20:21] LABS: Hemoglobin 11.3 g/dL (14.0-18.0); Platelet Count 210 10x3/uL (130-400)
[2024-01-04 20:43] LABS: Anion Gap 26 mmol/L (10-20); BUN (Urea Nitrogen) 67 mg/dL (8.9-20.6); Calc. Creatinine Clearance 23 mL/min (70-130); Calcium 6.5 mg/dL (7.8-10.44); Carbon Dioxide 25 mmol/L (22-29); Chloride 89 mmol/L (98-107); Estimated GFR 14; Glucose 98 mg/dL (70-105); Magnesium 2.6 mg/dL (1.6-2.6); Potassium 5.8 mmol/L (3.5-5.1); Sodium 134 mmol/L (136-145)
[2024-01-04] MEDS: Dextrose 50% Abboject 50 ML SYRINGE SLOW IVP SCH (21:17)
[2024-01-04] MEDS: LOKELMA 10 GM PACKET PER TUBE SCH (21:17)
[2024-01-04] MEDS: Insulin Regular, Human 100 UNIT/ML 10 ML VIAL IVP SCH (21:17)
[2024-01-05 04:16] LABS: #Basophils Less than 0.03 10x3/uL (0.0-0.2); #Eosinophils Less than 0.03 10x3/uL (0.0-0.7); %Basophils 0.1 % (0.0-1.0); %Lymphocytes 8.9 % (21.0-51.0); %Monocytes 10.3 % (0.0-10.0); %Neutrophils 80.3 % (42.0-75.0); Hematocrit 33.2 % (42.0-52.0); Mean Corpuscular HGB CONC 33.1 g/dL (32.0-36.0); Mean Corpuscular Hemoglobin 26.7 pg (27.0-31.0); Mean Corpuscular Volume 80.6 fL (78.0-98.0); Mean Platelet Volume 11.4 fL (7.4-10.4); Platelet Count 181 10x3/uL (130-400); RBC Distribution Width 14.3 % (11.5-14.5); Red Blood Cell (RBC) Count 4.12 mill/uL (4.70-6.10)
[2024-01-05 04:28] LABS: ALT (SGPT) 942 U/L (8-55); AST (SGOT) 1079 U/L (5-34); Albumin 2.9 g/dL (3.5-5.0); Alkaline Phosphatase 114 U/L (40-110); Anion Gap 21 mmol/L (10-20); BUN (Urea Nitrogen) 80 mg/dL (8.9-20.6); Bilirubin, Total 4.9 mg/dL (0.2-1.2); Calc. Creatinine Clearance 21 mL/min (70-130); Calcium 6.4 mg/dL (7.8-10.44); Carbon Dioxide 28 mmol/L (22-29); Chloride 88 mmol/L (98-107); Estimated GFR 12; Globulin 2.6 g/dL (2.4-3.5); Glucose 129 mg/dL (70-105); Potassium 4.8 mmol/L (3.5-5.1); Protein, Total 5.5 g/dL (6.0-8.3); Sodium 132 mmol/L (136-145)
[2024-01-05] MEDS: Calcium Chloride 13.6 MEQ in Sodium Chloride 0.9% 100 ML IVPB SCH ×3 (05:03→21:33)
[2024-01-05] MEDS: Lactated Ringer's 1,000 ML IV SCH (09:17)
[2024-01-05 10:48] LABS: Critical Call Chemistry ADM.RJP
[2024-01-05 10:49] LABS: Anion Gap 23 mmol/L (10-20); BUN (Urea Nitrogen) 85 mg/dL (8.9-20.6); Calc. Creatinine Clearance 24 mL/min (70-130); Calcium 6.6 mg/dL (7.8-10.44); Carbon Dioxide 27 mmol/L (22-29); Chloride 89 mmol/L (98-107); Estimated GFR 13; Glucose 128 mg/dL (70-105); Potassium 4.8 mmol/L (3.5-5.1); Sodium 134 mmol/L (136-145)
[2024-01-05] MEDS: Hydrocortisone Sod Succ/PF 100 mg/2 ml Vial IVP SCH (12:00)
[2024-01-05] MEDS: Amiodarone 450 MG, Admixture Fee 1 EACH in Dextrose 5% in Water 250 ML IVPB SCH (15:47)
[2024-01-05 20:20] LABS: Anion Gap 23 mmol/L (10-20); BUN (Urea Nitrogen) 92 mg/dL (8.9-20.6); Calc. Creatinine Clearance 19 mL/min (70-130); Calcium 6.8 mg/dL (7.8-10.44); Carbon Dioxide 26 mmol/L (22-29); Chloride 89 mmol/L (98-107); Estimated GFR 11; Glucose 128 mg/dL (70-105); Potassium 4.7 mmol/L (3.5-5.1); Sodium 133 mmol/L (136-145)
[2024-01-06 04:48] LABS: Anion Gap 24 mmol/L (10-20); BUN (Urea Nitrogen) 105 mg/dL (8.9-20.6); Calc. Creatinine Clearance 19 mL/min (70-130); Carbon Dioxide 25 mmol/L (22-29); Chloride 87 mmol/L (98-107); Estimated GFR 10; Glucose 120 mg/dL (70-105); Magnesium 2.4 mg/dL (1.6-2.6); Sodium 131 mmol/L (136-145)
[2024-01-06 08:10] LABS: ALT (SGPT) 776 U/L (8-55); AST (SGOT) 583 U/L (5-34); Alkaline Phosphatase 118 U/L (40-110); Bilirubin, Direct 3.7 mg/dL (0.1-0.3); Bilirubin, Total 5.3 mg/dL (0.2-1.2)
[2024-01-06] MEDS ORDERED: Heparin 10,000 UNITS/ 10 ML VIAL ONE (11:34)
[2024-01-06 16:17] LABS: Free T4 (Free Thyroxine) 1.02 ng/dL (0.70-1.48); Thyroid Stimulating Hormone Less than 0.0083 uIU/mL (0.35-4.94)
[2024-01-06 18:54] LABS: Hematocrit 32.3 % (42.0-52.0); Hemoglobin 10.7 g/dL (14.0-18.0); Platelet Count 156 10x3/uL (130-400)
[2024-01-06] MEDS: Apixaban 5 MG TAB PO SCH (19:27)
[2024-01-06 19:29] LABS: HBSAB Concentration Less than 8.00 mIU/mL; HBsAg Index 0.32 S/CO (0-0.99); Hep B Core Total Ab NONREACTIVE (NonReactive); Hep B Core Total Index 0.09 S/CO (0-0.79); Hep B Surf AB NONREACTIVE (NonReactive); Hep B Surf Ag NONREACTIVE S/CO (NonReactive); Hep C IgG Ab NONREACTIVE S/CO (NonReactive); Hep C Index 0.12 S/CO (0-0.79)
[2024-01-07 04:28] LABS: Anion Gap 21 mmol/L (10-20); BUN (Urea Nitrogen) 115 mg/dL (8.9-20.6); Calc. Creatinine Clearance 0 mL/min (70-130); Calcium 7.8 mg/dL (7.8-10.44); Carbon Dioxide 26 mmol/L (22-29); Chloride 89 mmol/L (98-107); Estimated GFR 10; Glucose 118 mg/dL (70-105); Magnesium 2.4 mg/dL (1.6-2.6); Potassium 4.8 mmol/L (3.5-5.1); Sodium 131 mmol/L (136-145)
[2024-01-07] MEDS: Apixaban 5 MG TAB PO SCH ×2 (06:21→20:03)
[2024-01-07 09:00] LABS: Actual Bicarbonate (HCO3v) 28.6 mEq/L (22-28); Base Excess 3.2 mEq/L (-2.0 to +3.0); Calcium, Ionized (venous) 0.95 mmol/L (1.16-1.32); Chloride (VBG) 91 mmol/L (98-106); Hematocrit-VBG 36 % (42.0-52.0); Hemoglobin (Hb) 12.1 g/dL (13.2-17.3); Potassium (VBG) 4.51 mmol/L (3.70-5.30); Sodium 131 mmol/L (133-146); pH (venous) 7.404 (7.32-7.43)
[2024-01-07] MEDS ORDERED: Heparin 10,000 UNITS/ 10 ML VIAL ONE ×2 (09:05→16:00)
[2024-01-07] MEDS: Hydrocortisone Sod Succ/PF 100 mg/2 ml Vial IVP SCH (09:43)
[2024-01-07] MEDS: Dexmedetomidine In 0.9 % NaCl 100 ML IVPB SCH (12:35)
[2024-01-07 14:45] LABS: ALT (SGPT) 573 U/L (8-55); AST (SGOT) 334 U/L (5-34); Albumin 2.8 g/dL (3.5-5.0); Alkaline Phosphatase 115 U/L (40-110); Bilirubin, Total 5.3 mg/dL (0.2-1.2); Protein, Total 5.9 g/dL (6.0-8.3)
[2024-01-07] MEDS: Cefepime 1 GM in Sodium Chloride 0.9% 100 ML IVPB SCH (17:16)
[2024-01-08] MEDS: Loperamide HCl 2 MG CAP PO PRN (01:48)
[2024-01-08 04:33] LABS: Anion Gap 19 mmol/L (10-20); BUN (Urea Nitrogen) 101 mg/dL (8.9-20.6); Calc. Creatinine Clearance 20 mL/min (70-130); Carbon Dioxide 25 mmol/L (22-29); Chloride 94 mmol/L (98-107); Estimated GFR 11; Glucose 139 mg/dL (70-105); Magnesium 2.5 mg/dL (1.6-2.6); Potassium 4.3 mmol/L (3.5-5.1); Sodium 134 mmol/L (136-145)
[2024-01-08 04:34] LABS: ALT (SGPT) 396 U/L (8-55); AST (SGOT) 191 U/L (5-34); Albumin 2.6 g/dL (3.5-5.0); Alkaline Phosphatase 109 U/L (40-110); Bilirubin, Direct 3.5 mg/dL (0.1-0.3); Bilirubin, Total 4.7 mg/dL (0.2-1.2); Protein, Total 5.8 g/dL (6.0-8.3)
[2024-01-08 08:02] LABS: Actual Bicarbonate (HCO3a) 23.3 mEq/L (22-28); Base Excess (BEa) 0.2 mEq/L (-2.0 to +3.0); CO2 Tension 32.4 mmHg (35.0-45.0); Calcium, Ionized (arterial) 1.04 mmol/L (1.12-1.30); Carboxyhemoglobin (COHb) 0.8 gm% (0.0-3.0); Hematocrit-ABG 33 % (42.0-52.0); Hemoglobin (Hb) 11.2 g/dL (14.0-18.0); O2 Tension (PaO2), arterial 82.8 mmHg (80.0-100.0); Potassium - ABG Lab 4.44 mmol/L (3.70-5.30); pH, Arterial 7.474 (7.35-7.45)
[2024-01-08 08:03] LABS: Puncture Site Left Radial artery
[2024-01-08 08:17] LABS: pH (venous) 7.085 (7.32-7.43)
[2024-01-08 08:23] LABS: Potassium (VBG) 6.07 mmol/L (3.70-5.30)
[2024-01-08] MEDS: NOREPINEPHRINE 8 MG/250 ML-D5W 250 ML IVPB SCH (08:29)
[2024-01-08] MEDS ORDERED: Heparin 10,000 UNITS/ 10 ML VIAL ONE (09:06)
[2024-01-08] MEDS: Propranolol 10 MG TAB PER TUBE SCH (09:53)
[2024-01-08 19:51] LABS: Hematocrit 30.4 % (42.0-52.0); Hemoglobin 10.3 g/dL (14.0-18.0); Platelet Count 160 10x3/uL (130-400)
[2024-01-09 04:27] LABS: Hematocrit 29.5 % (42.0-52.0); Mean Corpuscular HGB CONC 33.9 g/dL (32.0-36.0); Mean Corpuscular Hemoglobin 26.6 pg (27.0-31.0); Mean Corpuscular Volume 78.5 fL (78.0-98.0); Mean Platelet Volume 11.2 fL (7.4-10.4); Platelet Count 132 10x3/uL (130-400); RBC Distribution Width 14.6 % (11.5-14.5); Red Blood Cell (RBC) Count 3.76 mill/uL (4.70-6.10)
[2024-01-09 04:35] LABS: Anion Gap 17 mmol/L (10-20); BUN (Urea Nitrogen) 85 mg/dL (8.9-20.6); Calc. Creatinine Clearance 22 mL/min (70-130); Calcium 7.7 mg/dL (7.8-10.44); Carbon Dioxide 24 mmol/L (22-29); Chloride 98 mmol/L (98-107); Estimated GFR 13; Glucose 135 mg/dL (70-105); Magnesium 2.4 mg/dL (1.6-2.6); Potassium 3.9 mmol/L (3.5-5.1); Sodium 135 mmol/L (136-145)
[2024-01-09 06:39] LABS: Anisocytosis SLIGHT = 6-15 cells HPF (0-5); Band 2 % (5-11); Elliptocytes SLIGHT = 2-5 cells HPF (0-1); Hypochromia SLIGHT = 6-15 cells HPF (0-5); Lymphocytes 12 % (21-51); Microcytosis MODERATE=15-30 cells HPF (0-5); Monocytes 22 % (0-10); Neutrophil 64 % (42-75); Nucleated RBC (Manual Ct) 4 % (0); Platelet Adequacy Comment Platelets Normal; Polychromasia SLIGHT = 2-3 cells HPF (0-2); Target Cells MODERATE= 6-15 cells HPF (0-1)
[2024-01-09 07:25] LABS: Actual Bicarbonate (HCO3a) 23.4 mEq/L (22-28); Base Excess (BEa) 0.5 mEq/L (-2.0 to +3.0); CO2 Tension 31.8 mmHg (35.0-45.0); Calcium, Ionized (arterial) 1.04 mmol/L (1.12-1.30); Carboxyhemoglobin (COHb) 1.4 gm% (0.0-3.0); Hematocrit-ABG 32 % (42.0-52.0); O2 Tension (PaO2), arterial 106.1 mmHg (80.0-100.0); Potassium - ABG Lab 3.92 mmol/L (3.70-5.30); pH, Arterial 7.485 (7.35-7.45)
[2024-01-09 07:28] LABS: Puncture Site Right Brachial art
[2024-01-09] MEDS: Propranolol 10 MG TAB PER TUBE SCH (15:02)
[2024-01-10 05:27] LABS: #Basophils Less than 0.03 10x3/uL (0.0-0.2); #Eosinophils Less than 0.03 10x3/uL (0.0-0.7); %Basophils 0.1 % (0.0-1.0); %Eosinophils 0.1 % (0.0-10.0); %Lymphocytes 9.6 % (21.0-51.0); %Monocytes 18.4 % (0.0-10.0); %Neutrophils 71.2 % (42.0-75.0); Hematocrit 29.2 % (42.0-52.0); Hemoglobin 9.9 g/dL (14.0-18.0); Mean Corpuscular HGB CONC 33.9 g/dL (32.0-36.0); Mean Corpuscular Hemoglobin 26.8 pg (27.0-31.0); Mean Corpuscular Volume 79.1 fL (78.0-98.0); Mean Platelet Volume 10.9 fL (7.4-10.4); Platelet Count 124 10x3/uL (130-400); RBC Distribution Width 15.4 % (11.5-14.5); Red Blood Cell (RBC) Count 3.69 mill/uL (4.70-6.10)
[2024-01-10 05:36] LABS: Anion Gap 20 mmol/L (10-20); Calc. Creatinine Clearance 17 mL/min (70-130); Calcium 7.8 mg/dL (7.8-10.44); Carbon Dioxide 20 mmol/L (22-29); Chloride 100 mmol/L (98-107); Estimated GFR 9; Glucose 139 mg/dL (70-105); Magnesium 2.4 mg/dL (1.6-2.6); Potassium 3.6 mmol/L (3.5-5.1); Sodium 136 mmol/L (136-145)
[2024-01-10 05:38] LABS: BUN (Urea Nitrogen) 125 mg/dL (8.9-20.6)
[2024-01-10] MEDS ORDERED: Heparin 10,000 UNITS/ 10 ML VIAL ONE (08:49)
[2024-01-10] MEDS: Propranolol 10 MG TAB PO SCH (15:10)
[2024-01-10] MEDS: Metoprolol Tartrate 5 MG (5 mL) VIAL IVP PRN (19:40)
[2024-01-10] MEDS: Melatonin 3 MG TAB PO PRN (21:36)
[2024-01-10] MEDS: diphenhydrAMINE 50 MG/ML VIAL IVP SCH (22:02)
[2024-01-10] MEDS: Metoprolol Tartrate 5 MG (5 mL) VIAL IVP SCH (22:02)
[2024-01-11 04:18] LABS: #Basophils Less than 0.03 10x3/uL (0.0-0.2); #Eosinophils Less than 0.03 10x3/uL (0.0-0.7); %Basophils 0.1 % (0.0-1.0); %Eosinophils 0.1 % (0.0-10.0); %Monocytes 13.3 % (0.0-10.0); %Neutrophils 71.9 % (42.0-75.0); Hematocrit 31.6 % (42.0-52.0); Hemoglobin 10.7 g/dL (14.0-18.0); Mean Corpuscular HGB CONC 33.9 g/dL (32.0-36.0); Mean Corpuscular Hemoglobin 26.6 pg (27.0-31.0); Mean Corpuscular Volume 78.4 fL (78.0-98.0); Mean Platelet Volume 11.2 fL (7.4-10.4); Platelet Count 146 10x3/uL (130-400); RBC Distribution Width 15.9 % (11.5-14.5); Red Blood Cell (RBC) Count 4.03 mill/uL (4.70-6.10)
[2024-01-11 04:38] LABS: Anion Gap 22 mmol/L (10-20); BUN (Urea Nitrogen) 88 mg/dL (8.9-20.6); Calc. Creatinine Clearance 21 mL/min (70-130); Calcium 8.5 mg/dL (7.8-10.44); Carbon Dioxide 18 mmol/L (22-29); Chloride 99 mmol/L (98-107); Estimated GFR 12; Glucose 75 mg/dL (70-105); Magnesium 2.3 mg/dL (1.6-2.6); Potassium 4.1 mmol/L (3.5-5.1); Sodium 135 mmol/L (136-145)
[2024-01-11] MEDS: Sodium Chloride 0.9% 250 ML IV SCH (17:22)
[2024-01-11 18:41] LABS: Calcium, Ionized (venous) 1.02 mmol/L (1.16-1.32); Chloride (VBG) 98 mmol/L (98-106); Hematocrit-VBG 38 % (42.0-52.0); Hemoglobin (Hb) 12.8 g/dL (13.2-17.3); Potassium (VBG) 5.24 mmol/L (3.70-5.30); Sodium 136 mmol/L (133-146); pH (venous) 7.339 (7.32-7.43)
[2024-01-11 18:42] LABS: Actual Bicarbonate (HCO3v) 14.3 mEq/L (22-28)
[2024-01-11 18:48] LABS: #Basophils Less than 0.03 10x3/uL (0.0-0.2); #Eosinophils Less than 0.03 10x3/uL (0.0-0.7); %Basophils 0.1 % (0.0-1.0); %Monocytes 10.5 % (0.0-10.0); %Neutrophils 71.9 % (42.0-75.0); Hematocrit 35.1 % (42.0-52.0); Hemoglobin 11.5 g/dL (14.0-18.0); Mean Corpuscular HGB CONC 32.8 g/dL (32.0-36.0); Mean Corpuscular Hemoglobin 26.6 pg (27.0-31.0); Mean Corpuscular Volume 81.1 fL (78.0-98.0); Mean Platelet Volume 11.3 fL (7.4-10.4); Platelet Count 159 10x3/uL (130-400); Red Blood Cell (RBC) Count 4.33 mill/uL (4.70-6.10)
[2024-01-11 19:10] LABS: Anisocytosis SLIGHT = 6-15 cells HPF (0-5); Burr Cells SLIGHT = 2-5 cells HPF (0-1); Platelet Adequacy Comment Platelets Normal; Polychromasia SLIGHT = 2-3 cells HPF (0-2); Target Cells SLIGHT = 2-5 cells HPF (0-1)
[2024-01-11 20:33] LABS: ALT (SGPT) 229 U/L (8-55); AST (SGOT) 171 U/L (5-34); Albumin 2.5 g/dL (3.5-5.0); Alkaline Phosphatase 101 U/L (40-110); Anion Gap 28 mmol/L (10-20); BUN (Urea Nitrogen) 108 mg/dL (8.9-20.6); Bilirubin, Total 5.3 mg/dL (0.2-1.2); Calc. Creatinine Clearance 17 mL/min (70-130); Calcium 8.7 mg/dL (7.8-10.44); Carbon Dioxide 13 mmol/L (22-29); Chloride 99 mmol/L (98-107); Estimated GFR 10; Glucose 80 mg/dL (70-105); Magnesium 2.6 mg/dL (1.6-2.6); Protein, Total 6.5 g/dL (6.0-8.3); Sodium 135 mmol/L (136-145)
[2024-01-11 20:40] LABS: Lactic Acid 5.33 mmol/L (0.5-2.2)
[2024-01-11] MEDS: diphenhydrAMINE 50 MG/ML VIAL IVP SCH (20:41)
[2024-01-11] MEDS: Sodium Bicarb 50 MEQ/50 ML Abboject 8.4% SYRINGE IVP SCH (21:37)
[2024-01-11 23:28] LABS: Lactic Acid 3.77 mmol/L (0.5-2.2)
[2024-01-12 03:22] LABS: #Basophils Less than 0.03 10x3/uL (0.0-0.2); #Eosinophils Less than 0.03 10x3/uL (0.0-0.7); %Basophils 0.1 % (0.0-1.0); %Lymphocytes 16.2 % (21.0-51.0); %Monocytes 11.4 % (0.0-10.0); %Neutrophils 71.9 % (42.0-75.0); Hematocrit 35.9 % (42.0-52.0); Hemoglobin 11.9 g/dL (14.0-18.0); Mean Corpuscular HGB CONC 33.1 g/dL (32.0-36.0); Mean Corpuscular Hemoglobin 26.3 pg (27.0-31.0); Mean Corpuscular Volume 79.2 fL (78.0-98.0); Mean Platelet Volume 12.2 fL (7.4-10.4); Platelet Count 172 10x3/uL (130-400); RBC Distribution Width 17.2 % (11.5-14.5); Red Blood Cell (RBC) Count 4.53 mill/uL (4.70-6.10)
[2024-01-12 04:39] LABS: Anion Gap 31 mmol/L (10-20); BUN (Urea Nitrogen) 119 mg/dL (8.9-20.6); Calc. Creatinine Clearance 15 mL/min (70-130); Calcium 8.9 mg/dL (7.8-10.44); Carbon Dioxide 12 mmol/L (22-29); Chloride 100 mmol/L (98-107); Estimated GFR 9; Glucose 84 mg/dL (70-105); Magnesium 2.8 mg/dL (1.6-2.6); Potassium 5.6 mmol/L (3.5-5.1); Sodium 137 mmol/L (136-145)
[2024-01-12] MEDS: Sodium Bicarb 50 MEQ/50 ML Abboject 8.4% SYRINGE IVP SCH (05:42)
[2024-01-12 06:01] LABS: Free T4 (Free Thyroxine) 0.68 ng/dL (0.70-1.48); Thyroid Stimulating Hormone Less than 0.0083 uIU/mL (0.35-4.94)
[2024-01-12] MEDS ORDERED: Heparin 10,000 UNITS/ 10 ML VIAL ONE (08:54)
[2024-01-12] MEDS: Artificial Tear Ophth Sol 15 ML BOT EA EYE PRN (09:24)
[2024-01-12] MEDS: Digoxin 0.5 MG/2 ML AMP SLOW IVP SCH (18:08)
[2024-01-12] MEDS: Ondansetron ODT 4 MG TAB PO PRN (20:44)
[2024-01-12] MEDS: Lorazepam 0.5 MG TAB PO PRN (22:26)
[2024-01-13] MEDS: diphenhydrAMINE 50 MG/ML VIAL IVP SCH (00:30)
[2024-01-13 02:04] LABS: #Basophils Less than 0.03 10x3/uL (0.0-0.2); #Eosinophils Less than 0.03 10x3/uL (0.0-0.7); %Basophils 0.1 % (0.0-1.0); %Monocytes 13.1 % (0.0-10.0); %Neutrophils 77.3 % (42.0-75.0); Hematocrit 32.2 % (42.0-52.0); Hemoglobin 10.7 g/dL (14.0-18.0); Mean Corpuscular HGB CONC 33.2 g/dL (32.0-36.0); Mean Corpuscular Hemoglobin 26.3 pg (27.0-31.0); Mean Corpuscular Volume 79.1 fL (78.0-98.0); Platelet Count 198 10x3/uL (130-400); Red Blood Cell (RBC) Count 4.07 mill/uL (4.70-6.10)
[2024-01-13 02:23] LABS: Anion Gap 22 mmol/L (10-20); BUN (Urea Nitrogen) 77 mg/dL (8.9-20.6); Calc. Creatinine Clearance 21 mL/min (70-130); Calcium 8.4 mg/dL (7.8-10.44); Carbon Dioxide 20 mmol/L (22-29); Chloride 100 mmol/L (98-107); Estimated GFR 13; Glucose 109 mg/dL (70-105); Potassium 5.1 mmol/L (3.5-5.1); Sodium 137 mmol/L (136-145)
[2024-01-13] MEDS: Hydrocortisone Sod Succ/PF 100 mg/2 ml Vial IVP SCH (08:18)
[2024-01-13] MEDS: Propranolol 40 MG TAB PO SCH ×2 (08:25→15:48)
[2024-01-13] MEDS: Digoxin 0.5 MG/2 ML AMP SLOW IVP SCH (10:47)
[2024-01-13] MEDS: Propranolol 10 MG TAB PO SCH (23:18)
[2024-01-14 05:22] LABS: #Basophils Less than 0.03 10x3/uL (0.0-0.2); #Eosinophils Less than 0.03 10x3/uL (0.0-0.7); %Basophils 0.1 % (0.0-1.0); %Eosinophils 0.1 % (0.0-10.0); %Lymphocytes 13.2 % (21.0-51.0); %Monocytes 7.5 % (0.0-10.0); %Neutrophils 78.6 % (42.0-75.0); Hemoglobin 10.4 g/dL (14.0-18.0); Mean Corpuscular HGB CONC 33.5 g/dL (32.0-36.0); Mean Corpuscular Hemoglobin 26.5 pg (27.0-31.0); Mean Corpuscular Volume 79.1 fL (78.0-98.0); Mean Platelet Volume 11.5 fL (7.4-10.4); Platelet Count 167 10x3/uL (130-400); RBC Distribution Width 18.3 % (11.5-14.5); Red Blood Cell (RBC) Count 3.92 mill/uL (4.70-6.10)
[2024-01-14 06:04] LABS: Anion Gap 22 mmol/L (10-20); BUN (Urea Nitrogen) 106 mg/dL (8.9-20.6); Calc. Creatinine Clearance 16 mL/min (70-130); Calcium 7.8 mg/dL (7.8-10.44); Carbon Dioxide 22 mmol/L (22-29); Chloride 96 mmol/L (98-107); Estimated GFR 9; Glucose 115 mg/dL (70-105); Potassium 5.2 mmol/L (3.5-5.1); Sodium 135 mmol/L (136-145)
[2024-01-14] MEDS: Hydrocortisone Sod Succ/PF 100 mg/2 ml Vial IVP SCH (08:43)
[2024-01-14 12:19] LABS: INR-International Normal Ratio 1.8; PTT 29.3 sec (22.9-36.1); Prothrombin Time 21.1 sec (12.0-14.7)
[2024-01-14] MEDS: Apixaban 2.5 MG TAB PO SCH (20:19)
[2024-01-14] MEDS: MINERAL OIL/WHITE PETROLATUM 3.5 GM TUBE EA EYE SCH (20:46)
[2024-01-14] MEDS ORDERED: Lidocaine 4% Patch TD SCH (21:15)
[2024-01-14] MEDS: Lidocaine 4% Patch TD SCH (21:19)
[2024-01-15 06:52] LABS: #Basophils Less than 0.03 10x3/uL (0.0-0.2); #Eosinophils Less than 0.03 10x3/uL (0.0-0.7); %Basophils 0.1 % (0.0-1.0); %Lymphocytes 13.3 % (21.0-51.0); %Monocytes 6.7 % (0.0-10.0); %Neutrophils 79.4 % (42.0-75.0); Hematocrit 33.5 % (42.0-52.0); Hemoglobin 11.3 g/dL (14.0-18.0); Mean Corpuscular HGB CONC 33.7 g/dL (32.0-36.0); Mean Platelet Volume 11.8 fL (7.4-10.4); Platelet Count 182 10x3/uL (130-400); RBC Distribution Width 19.1 % (11.5-14.5); Red Blood Cell (RBC) Count 4.19 mill/uL (4.70-6.10)
[2024-01-15 07:24] LABS: Anion Gap 28 mmol/L (10-20); BUN (Urea Nitrogen) 122 mg/dL (8.9-20.6); Calc. Creatinine Clearance 13 mL/min (70-130); Calcium 7.4 mg/dL (7.8-10.44); Carbon Dioxide 17 mmol/L (22-29); Chloride 95 mmol/L (98-107); Estimated GFR 8; Glucose 70 mg/dL (70-105); Potassium 6.2 mmol/L (3.5-5.1); Sodium 134 mmol/L (136-145)
[2024-01-15] MEDS: Pantoprazole DR 40 MG TAB PO SCH (09:49)
[2024-01-15] MEDS: Transdermal Patch Removal TOP SCH (09:50)
[2024-01-15] MEDS ORDERED: Heparin 10,000 UNITS/ 10 ML VIAL ONE (14:39)
[2024-01-15] MEDS ORDERED: Loratadine 10 MG TAB PO PRN (16:35)
[2024-01-15] MEDS ORDERED: Temazepam 15 MG CAP PO PRN (16:35)
[2024-01-15] MEDS ORDERED: Moisturizing Cream (Eucerin) 113 GM JAR TOP PRN (16:35)
[2024-01-15] MEDS ORDERED: Senokot S 8.6-50 MG TAB PO PRN (16:35)
[2024-01-15] MEDS ORDERED: Sodium Chloride 0.65% Nasal 44 ML BOT EA NARE PRN (16:35)
[2024-01-15] MEDS ORDERED: Benzocaine/Menthol 1 LOZ LOZ PO PRN (16:35)
[2024-01-15] MEDS: hydrOXYzine 25 MG TAB PO PRN (17:46)
[2024-01-15] MEDS: Carbamide Peroxide 6.5% Otic Drops 15 ml Bottle EA EAR SCH (20:57)
[2024-01-15] MEDS: Sertraline 100 MG TAB PO SCH (20:57)
[2024-01-15] MEDS: Methocarbamol 500 MG TAB PO PRN (20:58)
[2024-01-15] MEDS: Doxepin HCl 10 MG CAP PO PRN (21:14)
[2024-01-16 05:40] LABS: #Basophils Less than 0.03 10x3/uL (0.0-0.2); #Eosinophils Less than 0.03 10x3/uL (0.0-0.7); %Basophils 0.1 % (0.0-1.0); %Eosinophils 0.1 % (0.0-10.0); %Lymphocytes 13.3 % (21.0-51.0); %Monocytes 7.8 % (0.0-10.0); %Neutrophils 77.9 % (42.0-75.0); Hematocrit 33.4 % (42.0-52.0); Hemoglobin 11.2 g/dL (14.0-18.0); Mean Corpuscular HGB CONC 33.5 g/dL (32.0-36.0); Mean Corpuscular Hemoglobin 26.7 pg (27.0-31.0); Mean Corpuscular Volume 79.7 fL (78.0-98.0); Mean Platelet Volume 11.8 fL (7.4-10.4); Platelet Count 214 10x3/uL (130-400); RBC Distribution Width 19.3 % (11.5-14.5); Red Blood Cell (RBC) Count 4.19 mill/uL (4.70-6.10)
[2024-01-16 05:55] LABS: Anion Gap 19 mmol/L (10-20); BUN (Urea Nitrogen) 71 mg/dL (8.9-20.6); Calc. Creatinine Clearance 18 mL/min (70-130); Calcium 8.2 mg/dL (7.8-10.44); Carbon Dioxide 24 mmol/L (22-29); Chloride 98 mmol/L (98-107); Estimated GFR 13; Glucose 92 mg/dL (70-105); Potassium 4.6 mmol/L (3.5-5.1); Sodium 136 mmol/L (136-145)
[2024-01-16 05:57] LABS: ALT (SGPT) 181 U/L (8-55); AST (SGOT) 139 U/L (5-34); Albumin 2.5 g/dL (3.5-5.0); Alkaline Phosphatase 110 U/L (40-110); Bilirubin, Direct 3.3 mg/dL (0.1-0.3); Bilirubin, Total 4.3 mg/dL (0.2-1.2); Protein, Total 6.4 g/dL (6.0-8.3)
[2024-01-17] MEDS: Lorazepam 1 MG TAB PO PRN (01:18)
[2024-01-17 04:24] LABS: #Basophils Less than 0.03 10x3/uL (0.0-0.2); #Eosinophils Less than 0.03 10x3/uL (0.0-0.7); %Basophils 0.2 % (0.0-1.0); %Eosinophils 0.1 % (0.0-10.0); %Monocytes 9.9 % (0.0-10.0); %Neutrophils 75.3 % (42.0-75.0); Hematocrit 31.1 % (42.0-52.0); Hemoglobin 10.2 g/dL (14.0-18.0); Mean Corpuscular HGB CONC 32.8 g/dL (32.0-36.0); Mean Corpuscular Hemoglobin 26.8 pg (27.0-31.0); Mean Corpuscular Volume 81.6 fL (78.0-98.0); Mean Platelet Volume 12.1 fL (7.4-10.4); Platelet Count 196 10x3/uL (130-400); RBC Distribution Width 19.7 % (11.5-14.5); Red Blood Cell (RBC) Count 3.81 mill/uL (4.70-6.10)
[2024-01-17 04:30] LABS: ALT (SGPT) 122 U/L (8-55); AST (SGOT) 79 U/L (5-34); Alkaline Phosphatase 86 U/L (40-110); Bilirubin, Direct 2.9 mg/dL (0.1-0.3); Bilirubin, Total 3.8 mg/dL (0.2-1.2)
[2024-01-17 04:57] LABS: Anion Gap 25 mmol/L (10-20); BUN (Urea Nitrogen) 69 mg/dL (8.9-20.6); Calc. Creatinine Clearance 22 mL/min (70-130); Calcium 6.4 mg/dL (7.8-10.44); Carbon Dioxide 17 mmol/L (22-29); Chloride 108 mmol/L (98-107); Estimated GFR 16; Glucose 68 mg/dL (70-105); Potassium 5.7 mmol/L (3.5-5.1); Sodium 144 mmol/L (136-145)
[2024-01-17] MEDS: Sodium Polystyrene Sulfonate 15 GM (60 mL) BOT PO SCH (08:24)
[2024-01-17] MEDS ORDERED: Heparin 10,000 UNITS/ 10 ML VIAL ONE (13:49)
[2024-01-18 04:31] LABS: #Basophils Less than 0.03 10x3/uL (0.0-0.2); #Eosinophils Less than 0.03 10x3/uL (0.0-0.7); %Eosinophils 0.1 % (0.0-10.0); %Lymphocytes 12.1 % (21.0-51.0); %Monocytes 9.1 % (0.0-10.0); %Neutrophils 78.2 % (42.0-75.0); Hematocrit 32.7 % (42.0-52.0); Hemoglobin 10.8 g/dL (14.0-18.0); Mean Corpuscular Hemoglobin 26.6 pg (27.0-31.0); Mean Corpuscular Volume 80.5 fL (78.0-98.0); Mean Platelet Volume 11.3 fL (7.4-10.4); Platelet Count 215 10x3/uL (130-400); RBC Distribution Width 20.3 % (11.5-14.5); Red Blood Cell (RBC) Count 4.06 mill/uL (4.70-6.10)
[2024-01-18 04:48] LABS: Anion Gap 17 mmol/L (10-20); BUN (Urea Nitrogen) 63 mg/dL (8.9-20.6); Calc. Creatinine Clearance 22 mL/min (70-130); Calcium 8.1 mg/dL (7.8-10.44); Carbon Dioxide 23 mmol/L (22-29); Chloride 98 mmol/L (98-107); Estimated GFR 15; Glucose 101 mg/dL (70-105); Potassium 4.2 mmol/L (3.5-5.1); Sodium 134 mmol/L (136-145)
[2024-01-18] MEDS: Apixaban 2.5 MG TAB PO SCH ×2 (10:21→21:20)
[2024-01-18] MEDS ORDERED: Mag-Al 1200 mg/1200 mg/30 ML UDCUP PO PRN (23:41)
[2024-01-18] MEDS: Calcium Carbonate 500 MG ChewTAB PO PRN (23:50)
[2024-01-19 04:10] LABS: #Basophils Less than 0.03 10x3/uL (0.0-0.2); #Eosinophils Less than 0.03 10x3/uL (0.0-0.7); %Basophils 0.1 % (0.0-1.0); %Eosinophils 0.1 % (0.0-10.0); %Lymphocytes 11.3 % (21.0-51.0); %Monocytes 7.6 % (0.0-10.0); %Neutrophils 80.5 % (42.0-75.0); Hematocrit 28.3 % (42.0-52.0); Hemoglobin 9.4 g/dL (14.0-18.0); Mean Corpuscular HGB CONC 33.2 g/dL (32.0-36.0); Mean Corpuscular Hemoglobin 26.9 pg (27.0-31.0); Mean Corpuscular Volume 80.9 fL (78.0-98.0); Mean Platelet Volume 11.6 fL (7.4-10.4); Platelet Count 174 10x3/uL (130-400); RBC Distribution Width 19.9 % (11.5-14.5)
[2024-01-19 04:33] LABS: Anion Gap 19 mmol/L (10-20); BUN (Urea Nitrogen) 68 mg/dL (8.9-20.6); Calc. Creatinine Clearance 23 mL/min (70-130); Calcium 6.9 mg/dL (7.8-10.44); Carbon Dioxide 19 mmol/L (22-29); Chloride 101 mmol/L (98-107); Estimated GFR 15; Glucose 83 mg/dL (70-105); Potassium 3.5 mmol/L (3.5-5.1); Sodium 135 mmol/L (136-145)
[2024-01-19] MEDS ORDERED: Heparin 10,000 UNITS/ 10 ML VIAL ONE (11:03)
[2024-01-20 05:16] LABS: #Basophils Less than 0.03 10x3/uL (0.0-0.2); #Eosinophils Less than 0.03 10x3/uL (0.0-0.7); %Basophils 0.1 % (0.0-1.0); %Eosinophils 0.2 % (0.0-10.0); %Lymphocytes 18.5 % (21.0-51.0); %Monocytes 12.4 % (0.0-10.0); %Neutrophils 68.5 % (42.0-75.0); Hematocrit 29.4 % (42.0-52.0); Hemoglobin 9.8 g/dL (14.0-18.0); Mean Corpuscular HGB CONC 33.3 g/dL (32.0-36.0); Mean Corpuscular Hemoglobin 27.1 pg (27.0-31.0); Mean Corpuscular Volume 81.2 fL (78.0-98.0); Mean Platelet Volume 10.6 fL (7.4-10.4); Platelet Count 159 10x3/uL (130-400); RBC Distribution Width 20.5 % (11.5-14.5); Red Blood Cell (RBC) Count 3.62 mill/uL (4.70-6.10)
[2024-01-20 05:31] LABS: Anion Gap 12 mmol/L (10-20); BUN (Urea Nitrogen) 40 mg/dL (8.9-20.6); Calc. Creatinine Clearance 33 mL/min (70-130); Calcium 7.8 mg/dL (7.8-10.44); Carbon Dioxide 28 mmol/L (22-29); Chloride 99 mmol/L (98-107); Estimated GFR 24; Glucose 103 mg/dL (70-105); Potassium 3.7 mmol/L (3.5-5.1); Sodium 135 mmol/L (136-145)
[2024-01-20] MEDS ORDERED: Heparin 10,000 UNITS/ 10 ML VIAL ONE (07:19)
[2024-01-20] MEDS ORDERED: Lidocaine 2% PF 5 ML VIAL ONE (07:19)
[2024-01-20] MEDS ORDERED: Bupivacaine PF 0.5% 30 ML VIAL ONE (07:19)
[2024-01-20] MEDS ORDERED: EPINEPHrine 1 MG/ML VIAL ONE (07:19)
[2024-01-20] MEDS ORDERED: Ondansetron HCl/PF 4 MG/2 ML Vial IVP PRN (07:36)
[2024-01-20] MEDS ORDERED: Promethazine HCl 25 MG/ML VIAL IM PRN (07:36)
[2024-01-20] MEDS ORDERED: Midazolam HCl 2 mg/2 ml Vial ONE (08:16)
[2024-01-20] MEDS ORDERED: fentaNYL 50 mcg/mL 1 mL Vial ONE (08:16)
[2024-01-20] MEDS ORDERED: Dexmedetomidine 200 MCG/2 ML VIAL ONE (08:17)
[2024-01-20] MEDS: Apixaban 2.5 MG TAB PO SCH (22:05)
[2024-01-21 05:06] LABS: Anion Gap 17 mmol/L (10-20); BUN (Urea Nitrogen) 50 mg/dL (8.9-20.6); Calc. Creatinine Clearance 29 mL/min (70-130); Calcium 7.5 mg/dL (7.8-10.44); Carbon Dioxide 24 mmol/L (22-29); Chloride 97 mmol/L (98-107); Estimated GFR 20; Glucose 83 mg/dL (70-105); Potassium 4.5 mmol/L (3.5-5.1); Sodium 133 mmol/L (136-145)
[2024-01-21 11:34] LABS: Free T4 (Free Thyroxine) 0.68 ng/dL (0.70-1.48); Thyroid Stimulating Hormone Less than 0.0083 uIU/mL (0.35-4.94)
[2024-01-21 14:26] LABS: ALT (SGPT) 105 U/L (8-55); AST (SGOT) 87 U/L (5-34); Albumin 2.5 g/dL (3.5-5.0); Alkaline Phosphatase 130 U/L (40-110); Bilirubin, Direct 2.9 mg/dL (0.1-0.3); Bilirubin, Total 3.7 mg/dL (0.2-1.2); Protein, Total 6.3 g/dL (6.0-8.3)
[2024-01-22] MEDS: Ipratropium/Albuterol 3 ML NEB NEB PRN (01:02)
[2024-01-22] MEDS: Amiodarone 150 MG in Dextrose 5% in Water 100 ML IVPB SCH (04:56)
[2024-01-22 05:55] LABS: #Basophils Less than 0.03 10x3/uL (0.0-0.2); #Eosinophils Less than 0.03 10x3/uL (0.0-0.7); %Basophils 0.1 % (0.0-1.0); %Eosinophils 0.1 % (0.0-10.0); %Lymphocytes 21.1 % (21.0-51.0); %Monocytes 10.4 % (0.0-10.0); %Neutrophils 67.9 % (42.0-75.0); Hemoglobin 9.5 g/dL (14.0-18.0); Mean Corpuscular HGB CONC 32.8 g/dL (32.0-36.0); Mean Corpuscular Hemoglobin 26.5 pg (27.0-31.0); Mean Platelet Volume 11.4 fL (7.4-10.4); Platelet Count 166 10x3/uL (130-400); RBC Distribution Width 20.5 % (11.5-14.5); Red Blood Cell (RBC) Count 3.58 mill/uL (4.70-6.10)
[2024-01-22] MEDS: Propranolol 10 MG TAB PO SCH (06:15)
[2024-01-22 06:39] LABS: ALT (SGPT) 103 U/L (8-55); AST (SGOT) 85 U/L (5-34); Albumin 2.5 g/dL (3.5-5.0); Alkaline Phosphatase 128 U/L (40-110); Anion Gap 16 mmol/L (10-20); BUN (Urea Nitrogen) 53 mg/dL (8.9-20.6); Bilirubin, Total 3.8 mg/dL (0.2-1.2); Calc. Creatinine Clearance 30 mL/min (70-130); Carbon Dioxide 23 mmol/L (22-29); Chloride 99 mmol/L (98-107); Estimated GFR 22; Globulin 3.9 g/dL (2.4-3.5); Glucose 94 mg/dL (70-105); Potassium 4.1 mmol/L (3.5-5.1); Protein, Total 6.4 g/dL (6.0-8.3); Sodium 134 mmol/L (136-145)
[2024-01-25 04:26] LABS: #Basophils Less than 0.03 10x3/uL (0.0-0.2); %Basophils 0.1 % (0.0-1.0); %Eosinophils 0.6 % (0.0-10.0); %Lymphocytes 23.7 % (21.0-51.0); %Monocytes 9.1 % (0.0-10.0); %Neutrophils 66.3 % (42.0-75.0); Hematocrit 26.9 % (42.0-52.0); Hemoglobin 8.6 g/dL (14.0-18.0); Mean Corpuscular Hemoglobin 26.5 pg (27.0-31.0); Mean Corpuscular Volume 82.8 fL (78.0-98.0); Mean Platelet Volume 10.1 fL (7.4-10.4); Platelet Count 192 10x3/uL (130-400); Red Blood Cell (RBC) Count 3.25 mill/uL (4.70-6.10)
[2024-01-25 05:02] LABS: Anion Gap 12 mmol/L (10-20); BUN (Urea Nitrogen) 26 mg/dL (8.9-20.6); Calc. Creatinine Clearance 45 mL/min (70-130); Calcium 7.7 mg/dL (7.8-10.44); Carbon Dioxide 24 mmol/L (22-29); Chloride 103 mmol/L (98-107); Estimated GFR 36; Glucose 89 mg/dL (70-105); Potassium 3.3 mmol/L (3.5-5.1); Sodium 136 mmol/L (136-145)
[2024-01-25] MEDS: Sacubitril 24MG/Valsartan 26 MG TAB PO SCH (09:33)
[2024-01-25 12:31] VITALS: BMI 22.3
[2024-01-25 14:15] LABS: Anion Gap 14 mmol/L (10-20); BUN (Urea Nitrogen) 28 mg/dL (8.9-20.6); Calc. Creatinine Clearance 44 mL/min (70-130); Calcium 7.6 mg/dL (7.8-10.44); Carbon Dioxide 24 mmol/L (22-29); Chloride 103 mmol/L (98-107); Estimated GFR 35; Glucose 94 mg/dL (70-105); Potassium 3.5 mmol/L (3.5-5.1); Sodium 137 mmol/L (136-145)
[2024-01-25] MEDS: Potassium Chloride 20 MEQ TAB PO SCH (15:04)
[2024-01-25 15:12] VITALS: BP 130/90; TEMP 97.6
[2024-01-25 15:48] LABS: #Basophils Less than 0.03 10x3/uL (0.0-0.2); %Basophils 0.1 % (0.0-1.0); %Eosinophils 0.6 % (0.0-10.0); %Monocytes 9.7 % (0.0-10.0); %Neutrophils 69.1 % (42.0-75.0); Hematocrit 28.6 % (42.0-52.0); Hemoglobin 9.2 g/dL (14.0-18.0); Mean Corpuscular HGB CONC 32.2 g/dL (32.0-36.0); Mean Corpuscular Hemoglobin 26.5 pg (27.0-31.0); Mean Corpuscular Volume 82.4 fL (78.0-98.0); Mean Platelet Volume 11.3 fL (7.4-10.4); Platelet Count 164 10x3/uL (130-400); RBC Distribution Width 20.7 % (11.5-14.5); Red Blood Cell (RBC) Count 3.47 mill/uL (4.70-6.10)
== END 2024-01-25 19:50 | disposition home or self-care (01) | DRG 643 ==
LOC: ERS 19:18 → IMCU/EMU 23:14 → CCU 01-02 14:16 → 2NO 01-11 17:09 → CCU 01-11 19:46 → IMCU/EMU 01-14 06:17 → 2NO 01-20 18:27
PROVIDERS: ADMIT Student in an Organized Health Care Education/Training Program; ATTEND Internal Medicine
PROC: 5A12012 Performance of Cardiac Output, Single, Manual (ICD-10-PCS; principal; 2024-01-02)
PROC: 3E03317 Introduction of Other Thrombolytic into Peripheral Vein, Percutaneous Approach (ICD-10-PCS; 2024-01-02)
PROC: 5A1955Z Respiratory Ventilation, Greater than 96 Consecutive Hours (ICD-10-PCS; 2024-01-02)
PROC: 0BH17EZ Insertion of Endotracheal Airway into Trachea, Via Natural or Artificial Opening (ICD-10-PCS; 2024-01-02)
PROC: 3E033XZ Introduction of Vasopressor into Peripheral Vein, Percutaneous Approach (ICD-10-PCS; 2024-01-02)
PROC: 4A133R1 Monitoring of Arterial Saturation, Peripheral, Percutaneous Approach (ICD-10-PCS; 2024-01-02)
PROC: 02HV33Z Insertion of Infusion Device into Superior Vena Cava, Percutaneous Approach (ICD-10-PCS; 2024-01-06)
PROC: 5A1D90Z Performance of Urinary Filtration, Continuous, Greater than 18 hours Per Day (ICD-10-PCS; 2024-01-06)
PROC: 0JH60XZ Insertion of Tunneled Vascular Access Device into Chest Subcutaneous Tissue and Fascia, Open Approach (ICD-10-PCS; 2024-01-20)
PROC: 02HV33Z Insertion of Infusion Device into Superior Vena Cava, Percutaneous Approach (ICD-10-PCS; 2024-01-20)
PROC: B518ZZA Fluoroscopy of Superior Vena Cava, Guidance (ICD-10-PCS; 2024-01-20)
PROC: B548ZZA Ultrasonography of Superior Vena Cava, Guidance (ICD-10-PCS; 2024-01-20)
PROC: 0JPTXXZ Removal of Tunneled Vascular Access Device from Trunk Subcutaneous Tissue and Fascia, External Approach (ICD-10-PCS; 2024-01-25)
PROC: 02PYX3Z Removal of Infusion Device from Great Vessel, External Approach (ICD-10-PCS; 2024-01-25)
DX: E05.91 Thyrotoxicosis, unspecified with thyrotoxic crisis or storm (principal); G93.41 Metabolic encephalopathy; I21.4 Non-ST elevation (NSTEMI) myocardial infarction; I50.23 Acute on chronic systolic (congestive) heart failure; I46.9 Cardiac arrest, cause unspecified; J96.01 Acute respiratory failure with hypoxia; K72.00 Acute and subacute hepatic failure without coma; R57.0 Cardiogenic shock; N17.0 Acute kidney failure with tubular necrosis; E87.1 Hypo-osmolality and hyponatremia; J90 Pleural effusion, not elsewhere classified; R18.8 Other ascites; I24.9 Acute ischemic heart disease, unspecified; E87.20 Acidosis, unspecified; I42.9 Cardiomyopathy, unspecified; I11.0 Hypertensive heart disease with heart failure; E87.5 Hyperkalemia; K57.30 Diverticulosis of large intestine without perforation or abscess without bleeding; F12.10 Cannabis abuse, uncomplicated; R00.1 Bradycardia, unspecified; F17.210 Nicotine dependence, cigarettes, uncomplicated; Z91.041 Radiographic dye allergy status; Z79.82 Long term (current) use of aspirin; Z79.899 Other long term (current) drug therapy; F41.9 Anxiety disorder, unspecified
CPT/HCPCS: 36415; 36416; 36600; 49083; 71045; 74018; 74174; 74176; 76705; 80048; 80053; 80076; 80202; 80306; 82040; 82805; 83605; 83735; 83880; 84100; 84439; 84443; 84481; 84484; 85014; 85018; 85025; 85049; 85610; 85730; 86704; 86706; 86803; 86850; 86900; 86901; 87040; 87077; 87149; 87324; 87340; 87449; 90935; 93005; 93010; 93306; 93970; 94002; 94003; 94640; 96374; 96375; 96376; A6258; C1752; G0257; J0171; J0282; J0612; J0613; J0665; J0692; J1160; J1200; J1250; J1642; J1644; J1650; J1720; J1815; J1940; J2060; J2250; J2272; J2405; J2470; J2704; J2997; J3010; J3370; J3475; J7030; J7070; J7120; J7620; J7999; P9047; Q0162; Q9967

== ENCOUNTER 2024-02-11 12:29 | Inpatient (IN) | payer OTHER ==
[2024-02-11 14:30] VITALS: BMI 24.7
[2024-02-11] MEDS: Furosemide 20 MG (2 mL) VIAL SLOW IVP SCH (16:59)
[2024-02-11] MEDS: Carvedilol 3.125 MG TAB PO SCH (17:00)
[2024-02-11 17:44] LABS: ALT (SGPT) 24 U/L (8-55); AST (SGOT) 26 U/L (5-34); Alkaline Phosphatase 153 U/L (40-110); Anion Gap 14 mmol/L (10-20); BUN (Urea Nitrogen) 16 mg/dL (8.9-20.6); Bilirubin, Total 1.8 mg/dL (0.2-1.2); Calc. Creatinine Clearance 74 mL/min (70-130); Calcium 7.9 mg/dL (7.8-10.44); Carbon Dioxide 18 mmol/L (22-29); Chloride 109 mmol/L (98-107); Estimated GFR 59; Glucose 91 mg/dL (70-105); Potassium 4.8 mmol/L (3.5-5.1); Sodium 136 mmol/L (136-145)
[2024-02-11 17:56] LABS: Anisocytosis SLIGHT = 6-15 cells HPF (0-5); Hypochromia SLIGHT = 6-15 cells HPF (0-5); Lymphocytes 36 % (21-51); Monocytes 9 % (0-10); Neutrophil 54 % (42-75); Nucleated RBC (Manual Ct) 11 % (0); Platelet Adequacy Comment Platelets Normal; Polychromasia SLIGHT = 2-3 cells HPF (0-2); Schistocytes SLIGHT = 2-5 cells HPF (0-1); Smudge Cells 10.2 %; Target Cells SLIGHT = 2-5 cells HPF (0-1)
[2024-02-11 18:03] LABS: Free T4 (Free Thyroxine) 0.58 ng/dL (0.70-1.48); Thyroid Stimulating Hormone 1.1693 uIU/mL (0.35-4.94)
[2024-02-11] MEDS: Diltiazem HCl/D5W 125 MG in Premix 1 BAG IVPB SCH (18:31)
[2024-02-11 19:01] LABS: #Basophils Less than 0.03 10x3/uL (0.0-0.2); #Eosinophils Less than 0.03 10x3/uL (0.0-0.7); %Basophils 0.3 % (0.0-1.0); %Eosinophils 0.1 % (0.0-10.0); %Lymphocytes 39.2 % (21.0-51.0); %Monocytes 9.2 % (0.0-10.0); %Neutrophils 50.9 % (42.0-75.0); Hematocrit 29.5 % (42.0-52.0); Hemoglobin 9.1 g/dL (14.0-18.0); Mean Corpuscular HGB CONC 30.8 g/dL (32.0-36.0); Mean Corpuscular Hemoglobin 26.1 pg (27.0-31.0); Mean Corpuscular Volume 84.5 fL (78.0-98.0); Mean Platelet Volume 9.7 fL (7.4-10.4); Platelet Count 354 10x3/uL (130-400); RBC Distribution Width 20.6 % (11.5-14.5); Red Blood Cell (RBC) Count 3.49 mill/uL (4.70-6.10)
[2024-02-11] MEDS ORDERED: Apixaban 2.5 MG TAB PO SCH (21:00)
[2024-02-11] MEDS: Apixaban 5 MG TAB PO SCH (21:05)
[2024-02-11] MEDS: Sacubitril 24MG/Valsartan 26 MG TAB PO SCH (21:05)
[2024-02-11] MEDS: Methimazole 10 MG TAB PO SCH (21:07)
[2024-02-11] MEDS: Sertraline 25 MG TAB PO SCH (21:07)
[2024-02-11] MEDS: Acetaminophen 325 MG TAB PO PRN (22:16)
[2024-02-11] MEDS: Lidocaine 4% Patch TD SCH (23:49)
[2024-02-12] MEDS: Furosemide 40 MG (4 mL) VIAL SLOW IVP SCH (08:47)
[2024-02-12 09:20] LABS: Anion Gap 13 mmol/L (10-20); BUN (Urea Nitrogen) 16 mg/dL (8.9-20.6); Calc. Creatinine Clearance 81 mL/min (70-130); Calcium 7.6 mg/dL (7.8-10.44); Carbon Dioxide 18 mmol/L (22-29); Chloride 109 mmol/L (98-107); Estimated GFR 65; Glucose 93 mg/dL (70-105); Sodium 136 mmol/L (136-145)
[2024-02-12 09:51] LABS: Hematocrit 27.3 % (42.0-52.0); Hemoglobin 8.5 g/dL (14.0-18.0); Mean Corpuscular HGB CONC 31.1 g/dL (32.0-36.0); Mean Corpuscular Hemoglobin 25.8 pg (27.0-31.0); Mean Corpuscular Volume 82.7 fL (78.0-98.0); Platelet Count 351 10x3/uL (130-400); RBC Distribution Width 20.1 % (11.5-14.5)
[2024-02-12 11:54] LABS: Anisocytosis SLIGHT = 6-15 cells HPF (0-5); Band 1 % (5-11); Eosinophils 1 % (0-10); Hypochromia MODERATE=16-30 cells HPF (0-5); Lymphocytes 45 % (21-51); Monocytes 7 % (0-10); Neutrophil 46 % (42-75); Nucleated RBC (Manual Ct) 8 % (0); Platelet Adequacy Comment Platelets Normal; Polychromasia MODERATE = 3-4 cells HPF (0-2)
[2024-02-12] MEDS: Transdermal Patch Removal TOP SCH (12:25)
[2024-02-13 10:59] LABS: #Basophils 0.03 10x3/uL (0.0-0.2); %Basophils 0.4 % (0.0-1.0); %Eosinophils 0.4 % (0.0-10.0); %Lymphocytes 29.5 % (21.0-51.0); %Monocytes 7.5 % (0.0-10.0); %Neutrophils 61.8 % (42.0-75.0); Hematocrit 31.1 % (42.0-52.0); Hemoglobin 9.8 g/dL (14.0-18.0); Mean Corpuscular HGB CONC 31.5 g/dL (32.0-36.0); Mean Corpuscular Hemoglobin 26.1 pg (27.0-31.0); Mean Corpuscular Volume 82.7 fL (78.0-98.0); Mean Platelet Volume 9.3 fL (7.4-10.4); Platelet Count 383 10x3/uL (130-400); RBC Distribution Width 20.3 % (11.5-14.5); Red Blood Cell (RBC) Count 3.76 mill/uL (4.70-6.10)
[2024-02-13 11:47] LABS: Anion Gap 13 mmol/L (10-20); BUN (Urea Nitrogen) 13 mg/dL (8.9-20.6); Calc. Creatinine Clearance 92 mL/min (70-130); Calcium 8.2 mg/dL (7.8-10.44); Carbon Dioxide 21 mmol/L (22-29); Chloride 108 mmol/L (98-107); Estimated GFR 83; Glucose 117 mg/dL (70-105); Potassium 4.3 mmol/L (3.5-5.1); Sodium 138 mmol/L (136-145)
[2024-02-14 05:23] LABS: Free T4 (Free Thyroxine) 0.64 ng/dL (0.70-1.48); Thyroid Stimulating Hormone 0.6076 uIU/mL (0.35-4.94)
[2024-02-14 10:45] LABS: Anion Gap 12 mmol/L (10-20); BUN (Urea Nitrogen) 10 mg/dL (8.9-20.6); Calc. Creatinine Clearance 125 mL/min (70-130); Calcium 8.1 mg/dL (7.8-10.44); Carbon Dioxide 25 mmol/L (22-29); Chloride 106 mmol/L (98-107); Estimated GFR 116; Glucose 99 mg/dL (70-105); Potassium 3.8 mmol/L (3.5-5.1); Sodium 139 mmol/L (136-145)
[2024-02-15 06:04] LABS: Anion Gap 12 mmol/L (10-20); BUN (Urea Nitrogen) 9 mg/dL (8.9-20.6); Calc. Creatinine Clearance 106 mL/min (70-130); Calcium 8.1 mg/dL (7.8-10.44); Carbon Dioxide 23 mmol/L (22-29); Chloride 108 mmol/L (98-107); Estimated GFR 108; Glucose 76 mg/dL (70-105); Potassium 3.8 mmol/L (3.5-5.1); Sodium 139 mmol/L (136-145)
[2024-02-15] MEDS: Dapagliflozin Propanediol 10 MG TAB PO SCH (09:01)
[2024-02-15] MEDS: Dextrose 50% Abboject 50 ML SYRINGE ONE (14:56)
[2024-02-15 15:51] VITALS: BP 108/72; TEMP 98.1
== END 2024-02-15 16:24 | disposition home or self-care (01) | DRG 644 ==
LOC: EEVIPCON 13:33 → 2NO 13:33
PROVIDERS: ADMIT Internal Medicine; ATTEND Family Medicine
DX: E05.90 Thyrotoxicosis, unspecified without thyrotoxic crisis or storm (principal); I50.22 Chronic systolic (congestive) heart failure; N18.4 Chronic kidney disease, stage 4 (severe); I48.91 Unspecified atrial fibrillation; E03.9 Hypothyroidism, unspecified; I34.0 Nonrheumatic mitral (valve) insufficiency; D63.1 Anemia in chronic kidney disease; Z79.899 Other long term (current) drug therapy
CPT/HCPCS: 36415; 80048; 80053; 84439; 84443; 84481; 85025; 93005; 93010; 93798; 97139; J1940

== ENCOUNTER 2024-03-02 21:58 | Emergency (ER) | payer OTHER, SELFPAY ==
[2024-03-02] MEDS ORDERED: Lorazepam 2 MG/ML VIAL ONE ×2 (22:22→22:49)
[2024-03-02] MEDS ORDERED: EPINEPHrine 1 MG/10 ML Abboject SYRINGE ONE (22:30)
[2024-03-02] MEDS ORDERED: Amiodarone 150 MG/3 ML VIAL ONE (22:30)
[2024-03-02] MEDS ORDERED: Calcium Chloride 1 GM/10 ML Abboject SYRINGE ONE (22:30)
[2024-03-02] MEDS ORDERED: Sodium Bicarb 50 MEQ/50 ML Abboject 8.4% SYRINGE ONE ×2 (22:30→23:34)
[2024-03-02] MEDS ORDERED: Dextrose 50% Abboject 50 ML SYRINGE ONE ×2 (22:30→22:51)
[2024-03-02] MEDS ORDERED: Atropine Sulfate 1 mg/10 ml Syringe ONE (22:30)
[2024-03-02] MEDS ORDERED: Rocuronium Bromide 10 MG/ML (10ML VIAL) ONE (22:30)
[2024-03-02 22:40] LABS: Lipase 29 U/L (8-78)
[2024-03-02] MEDS ORDERED: Metoprolol Tartrate 5 MG (5 mL) VIAL ONE (22:40)
[2024-03-02 22:42] LABS: Acetaminophen Less than 10 mcg/mL (Less than 10); Alcohol Less than 10.0 mg/dL (Less than 10); Salicylate Less than 8.0 mg/dL (Less than 8.0)
[2024-03-02 22:48] LABS: ALT (SGPT) 25 U/L (8-55); AST (SGOT) 66 U/L (5-34); Albumin 3.6 g/dL (3.5-5.0); Alkaline Phosphatase 104 U/L (40-110); Anion Gap 24 mmol/L (10-20); BUN (Urea Nitrogen) 31 mg/dL (8.9-20.6); Bilirubin, Total 2.6 mg/dL (0.2-1.2); CK (CPK) 1442 U/L (30-200); Calc. Creatinine Clearance 0 mL/min (70-130); Calcium 8.4 mg/dL (7.8-10.44); Carbon Dioxide 9 mmol/L (22-29); Chloride 106 mmol/L (98-107); Estimated GFR 47; Globulin 4.7 g/dL (2.4-3.5); Glucose 65 mg/dL (70-105); Protein, Total 8.3 g/dL (6.0-8.3); Sodium 133 mmol/L (136-145); Troponin I 0.059 ng/mL (< 0.028)
[2024-03-02 22:50] LABS: Anisocytosis SLIGHT = 6-15 cells HPF (0-5); Burr Cells SLIGHT = 2-5 cells HPF (0-1); Eosinophils 1 % (0-10); Hypochromia SLIGHT = 6-15 cells HPF (0-5); Lymphocytes 45 % (21-51); Macrocytosis MARKED = >30 cells HPF (0-5); Monocytes 5 % (0-10); Neutrophil 48 % (42-75); Nucleated RBC (Manual Ct) 12 % (0); Ovalocytes SLIGHT = 2-5 cells HPF (0-1); Platelet Adequacy Comment Platelets Normal; Polychromasia MODERATE = 3-4 cells HPF (0-2); Schistocytes SLIGHT = 2-5 cells HPF (0-1); Target Cells SLIGHT = 2-5 cells HPF (0-1); Tear Drops SLIGHT = 2-5 cells HPF (0-1)
[2024-03-02 22:51] LABS: Hematocrit 29.8 % (42.0-52.0); Hemoglobin 8.9 g/dL (14.0-18.0); Mean Corpuscular HGB CONC 29.9 g/dL (32.0-36.0); Mean Corpuscular Hemoglobin 24.6 pg (27.0-31.0); Mean Corpuscular Volume 82.3 fL (78.0-98.0); Mean Platelet Volume 10.6 fL (7.4-10.4); Platelet Count 363 10x3/uL (130-400); RBC Distribution Width 19.6 % (11.5-14.5); Red Blood Cell (RBC) Count 3.62 mill/uL (4.70-6.10)
[2024-03-02 23:04] LABS: Free T4 (Free Thyroxine) 0.64 ng/dL (0.70-1.48); Thyroid Stimulating Hormone 2.8194 uIU/mL (0.35-4.94)
[2024-03-02] MEDS ORDERED: Insulin Regular, Human 100 UNIT/ML 10 ML VIAL ONE (23:09)
[2024-03-02] MEDS ORDERED: NOREPINEPHRINE 8 MG/250 ML-D5W 250 ML ONE (23:20)
[2024-03-02] MEDS ORDERED: fentaNYL 50 mcg/mL 1 mL Vial ONE (23:22)
[2024-03-02 23:26] LABS: Analyzer IN Cardio ER; Base Excess (BEa) -18.5 mEq/L (-2.0 to +3.0); CO2 Tension 43.7 mmHg (35.0-45.0); Calcium, Ionized (arterial) 1.26 mmol/L (1.12-1.30); Carboxyhemoglobin (COHb) 0.3 gm% (0.0-3.0); Hematocrit-ABG 15 % (42.0-52.0); Potassium - ABG Lab 4.45 mmol/L (3.70-5.30)
[2024-03-02 23:32] LABS: Actual Bicarbonate (HCO3a) 10.8 mEq/L (22-28); O2 Tension (PaO2), arterial 27.9 mmHg (80.0-100.0); pH, Arterial 7.009 (7.35-7.45)
[2024-03-02 23:33] LABS: Hemoglobin (Hb) 5.2 g/dL (14.0-18.0); Puncture Site Left Femoral artery
[2024-03-02 23:37] LABS: ALV-art Gradient 630.475 mmHg (0-20)
[2024-03-02] MEDS ORDERED: EPINEPHrine 1 MG/ML VIAL ONE (23:43)
[2024-03-02] MEDS ORDERED: Vasopressin 20 UNITS/ML VIAL ONE (23:44)
[2024-03-02 23:45] LABS: Actual Bicarbonate (HCO3a) 15.3 mEq/L (22-28); Analyzer IN Cardio ER; Base Excess (BEa) -13.6 mEq/L (-2.0 to +3.0); CO2 Tension 56.3 mmHg (35.0-45.0); Calcium, Ionized (arterial) 1.14 mmol/L (1.12-1.30); Hematocrit-ABG 13 % (42.0-52.0); Potassium - ABG Lab 4.46 mmol/L (3.70-5.30)
[2024-03-02] MEDS ORDERED: Albumin 25% 100 ML ONE (23:45)
[2024-03-02 23:48] LABS: O2 Tension (PaO2), arterial 16.4 mmHg (80.0-100.0); pH, Arterial 7.051 (7.35-7.45)
[2024-03-02 23:49] LABS: Hemoglobin (Hb) 4.5 g/dL (14.0-18.0); Puncture Site Arterial Line
[2024-03-02 23:53] LABS: ALV-art Gradient 626.225 mmHg (0-20)
[2024-03-03 00:03] LABS: #Basophils Less than 0.03 10x3/uL (0.0-0.2); %Basophils 0.2 % (0.0-1.0); %Eosinophils 0.6 % (0.0-10.0); %Lymphocytes 53.1 % (21.0-51.0); %Neutrophils 39.8 % (42.0-75.0); Hematocrit 17.9 % (42.0-52.0); Hemoglobin 5.1 g/dL (14.0-18.0); Mean Corpuscular HGB CONC 28.5 g/dL (32.0-36.0); Mean Corpuscular Hemoglobin 24.4 pg (27.0-31.0); Mean Corpuscular Volume 85.6 fL (78.0-98.0); Platelet Count 121 10x3/uL (130-400); RBC Distribution Width 19.9 % (11.5-14.5); Red Blood Cell (RBC) Count 2.09 mill/uL (4.70-6.10)
[2024-03-03 00:25] LABS: Anisocytosis SLIGHT = 6-15 cells HPF (0-5); Band 1 % (5-11); Eosinophils 1 % (0-10); Hypochromia SLIGHT = 6-15 cells HPF (0-5); Lymphocytes 64 % (21-51); Monocytes 3 % (0-10); Myelocyte 1 % (0-0); Neutrophil 30 % (42-75); Nucleated RBC (Manual Ct) 18 % (0); Platelet Adequacy Comment Platelets Decreased; Polychromasia MODERATE = 3-4 cells HPF (0-2); Target Cells SLIGHT = 2-5 cells HPF (0-1)
== END 2024-03-03 00:01 | disposition expired ==
LOC: ERS 21:58
DX: I46.9 Cardiac arrest, cause unspecified (principal); I42.9 Cardiomyopathy, unspecified; K74.60 Unspecified cirrhosis of liver; E05.00 Thyrotoxicosis with diffuse goiter without thyrotoxic crisis or storm; F17.210 Nicotine dependence, cigarettes, uncomplicated
CPT/HCPCS: 31500; 36430; 36556; 43753; 71045; 80053; 80307; 82550; 82805; 83605; 83690; 83880; 84439; 84443; 84484; 85025; 86850; 86900; 86901; 93005; 96365; 96375; 99292; J0171; J0282; J0461; J1815; J2060; J3010; J7999; P9016; P9047; P9048